=== PATIENT | female | born 1960 | race American Indian/Alaskan Native ===

== ENCOUNTER 2020-02-07 17:16 | Emergency (ER) | payer SELFPAY ==
[2020-02-07 18:46] LABS: Basophils # (Auto) 0.1 K/mm3 (0.0-0.1); Basophils % (Auto) 0.9 % (0.0-1.8); Eosinophils # (Auto) 0.2 K/mm3 (0.0-0.4); Eosinophils % (Auto) 2.2 % (0.0-4.3); Hematocrit 42.6 % (30.3-42.9); Hemoglobin 13.6 gm/dl (10.1-14.3); Lymphocytes # (Auto) 1.7 K/mm3 (1.2-5.4); Lymphocytes % (Auto) 17.3 % (13.4-35.0); Mean Corpuscular HGB Conc 32 % (30-34); Mean Corpuscular Volume 82 fl (79-97); Monocytes # (Auto) 0.7 K/mm3 (0.0-0.8); Monocytes % (Auto) 7.1 % (0.0-7.3); Platelet Count 485 K/mm3 (140-440); Red Blood Count 5.23 M/mm3 (3.65-5.03); Red Cell Distribution Width 15.8 % (13.2-15.2)
[2020-02-07] MEDS ORDERED: FAMOTIDINE 20 MG/2 ML INJ IV ONE (18:56)
[2020-02-07] MEDS ORDERED: SODIUM CHLORIDE 0.9% 1000 ML 1,000 ML IV ONE (18:56)
[2020-02-07] MEDS ORDERED: ONDANSETRON 4 MG/2 ML INJ IV ONE (18:56)
[2020-02-07] MEDS ORDERED: HYDROmorphone 1 MG/1 ML INJ IV ONE (18:56)
[2020-02-07 18:57] LABS: Bilirubin,Urine NEG (Negative); Blood,Urine SM (Negative); Color,Urine Straw (Yellow); Protein,Urine <15 mg/dL mg/dL (Negative); Urobilinogen,Urine < 2.0 mg/dL (<2.0)
[2020-02-07 19:00] LABS: Albumin 4.2 g/dL (3.9-5); Calcium 10.2 mg/dL (8.4-10.2)
--- NOTE | 2020-02-07 19:10 | Emergency Department Report ---
ED Abdominal Pain HPI - General Chief Complaint: Nausea/Vomiting/Diarrhea Stated Complaint: VOMITTING Time Seen by Provider: 02/07/20 18:35 Source: patient Mode of arrival: Ambulatory Limitations: No Limitations - History of Present Illness Initial Comments: 59-year-old female with a past medical history of diabetes on insulin, hypertension, previous cholecystectomy and presents to the hospital complains of nausea, vomiting with p.o. intolerance since this a.m. Patient has been unable to tolerate any of her medications because of vomiting and did not take her insulin because she was unable to eat. she denies hematemesis, fever, sick contacts, recent travel. She currently describes bilious vomiting without melena, hematochezia, or diarrhea. Patient has mid abdominal pain that radiates to to her entire abdomen. Patient denies history of gastroparesis Severity scale (0 -10): 9 - Related Data Previous Rx's Medication Instructions Recorded Last Taken Type Famotidine [Pepcid] 20 mg PO BID #20 tablet 02/07/20 Unknown Rx HYDROcodone/APAP 5-325 [[place] 1 each PO Q6HR PRN #14 tablet 02/07/20 Unknown Rx 5/325] Ondansetron [Zofran Odt] 4 mg PO Q8HR PRN #20 tab.rapdis 02/07/20 Unknown Rx Allergies Allergy/AdvReac Type Severity Reaction Status Date / Time metformin Allergy Nausea Verified 02/07/20 18:02 ED Review of Systems ROS: Stated complaint: VOMITTING Other details as noted in HPI Comment: All other systems reviewed and negative ED Past Medical Hx - Past Medical History Previous Medical History?: Yes Hx Hypertension: Yes Hx Heart Attack/AMI: Yes Hx Diabetes: Yes - Surgical History Hx Cholecystectomy: Yes Additional Surgical History: - Social History Smoking Status: Never Smoker - Medications Home Medications: Home Medications Medication Instructions Recorded Confirmed Last Taken Type Famotidine [Pepcid] 20 mg PO BID #20 tablet 02/07/20 Unknown Rx HYDROcodone/APAP 5-325 [[place] 1 each PO Q6HR PRN #14 tablet 02/07/20 Unknown Rx 5/325] Ondansetron [Zofran Odt] 4 mg PO Q8HR PRN #20 tab.rapdis 02/07/20 Unknown Rx ED Physical Exam - General Limitations: No Limitations - Other Other exam information: General: Mild distress secondary to pain Head: Atraumatic Eyes: normal appearance ENT: Dry mucous member Neck: Normal appearance, no midline tenderness Chest: Clear to auscultation bilaterally CV: Regular rate and rhythm Abdomen: Soft, normal bowel sounds, maximal tenderness to epigastric and right upper quadrant area without rebound or guarding Back: Normal inspection Extremity: Normal inspection, full range of motion Neuro: Alert O x 3, no facial asymmetry, speech clear, no gross motor sensory deficit Psych: Appropriate behavior Skin: No rash ED Course Vital Signs 02/07/20 02/07/20 02/07/20 18:07 18:36 19:26 Temperature 97.4 F L Pulse Rate 97 H 93 H Respiratory 26 H 22 22 Rate Blood Pressure 216/117 Blood Pressure 206/110 [Left] O2 Sat by Pulse 100 100 Oximetry 02/07/20 02/07/20 02/07/20 19:27 21:27 21:52 Temperature Pulse Rate 93 H 85 85 Respiratory 16 Rate Blood Pressure 206/110 117/70 Blood Pressure 126/78 [Left] O2 Sat by Pulse 98 Oximetry ED Medical Decision Making - Lab Data Result diagrams: 02/07/20 18:22 02/07/20 18:22 Lab Results 02/07/20 02/07/20 02/07/20 Range/Units 18:22 18:22 18:22 WBC 10.1 (4.5-11.0) K/mm3 RBC 5.23 H (3.65-5.03) M/mm3 Hgb 13.6 (10.1-14.3) gm/dl Hct 42.6 (30.3-42.9) % MCV 82 (79-97) fl MCH 26 L (28-32) pg MCHC 32 (30-34) % RDW 15.8 H (13.2-15.2) % Plt Count 485 H (140-440) K/mm3 Lymph % (Auto) 17.3 (13.4-35.0) % Carbon % (Auto) 7.1 (0.0-7.3) % Eos % (Auto) 2.2 (0.0-4.3) % Baso % (Auto) 0.9 (0.0-1.8) % Lymph # 1.7 (1.2-5.4) K/mm3 Carbon # 0.7 (0.0-0.8) K/mm3 Eos # 0.2 (0.0-0.4) K/mm3 Baso # 0.1 (0.0-0.1) K/mm3 Seg Neutrophils % 72.5 H (40.0-70.0) % Seg Neutrophils # 7.3 (1.8-7.7) K/mm3 Sodium 130 L (137-145) mmol/L Potassium 4.3 (3.6-5.0) mmol/L Chloride 92.0 L (98-107) mmol/L Carbon Dioxide 17 L (22-30) mmol/L Anion Gap 25 mmol/L BUN 18 H (7-17) mg/dL Creatinine 1.4 H (0.7-1.2) mg/dL Estimated GFR 47 ml/min BUN/Creatinine Ratio 13 % Glucose 285 H (65-100) mg/dL POC Glucose (70-105) Calcium 10.2 (8.4-10.2) mg/dL Total Bilirubin 0.60 (0.1-1.2) mg/dL AST 18 (5-40) units/L ALT 18 (7-56) units/L Alkaline Phosphatase 140 H (35-129) units/L Total Protein 7.8 (6.3-8.2) g/dL Albumin 4.2 (3.9-5) g/dL Albumin/Globulin Ratio 1.2 % Lipase 21 (13-60) units/L Urine Color (Yellow) Urine Turbidity (Clear) Urine pH (5.0-7.0) Ur Specific [place] (1.003-1.030) Urine Protein (Negative) mg/dL Urine Glucose (UA) (Negative) mg/dL Urine Ketones (Negative) mg/dL Urine Blood (Negative) Urine Nitrite (Negative) Urine Bilirubin (Negative) Urine Urobilinogen (<2.0) mg/dL Ur Leukocyte Esterase (Negative) Urine WBC (Auto) (0.0-6.0) /HPF Urine RBC (Auto) (0.0-6.0) /HPF 02/07/20 02/07/20 Range/Units 18:27 Unknown WBC (4.5-11.0) K/mm3 RBC (3.65-5.03) M/mm3 Hgb (10.1-14.3) gm/dl Hct (30.3-42.9) % MCV (79-97) fl MCH (28-32) pg MCHC (30-34) % RDW (13.2-15.2) % Plt Count (140-440) K/mm3 Lymph % (Auto) (13.4-35.0) % Carbon % (Auto) (0.0-7.3) % Eos % (Auto) (0.0-4.3) % Baso % (Auto) (0.0-1.8) % Lymph # (1.2-5.4) K/mm3 Carbon # (0.0-0.8) K/mm3 Eos # (0.0-0.4) K/mm3 Baso # (0.0-0.1) K/mm3 Seg Neutrophils % (40.0-70.0) % Seg Neutrophils # (1.8-7.7) K/mm3 Sodium (137-145) mmol/L Potassium (3.6-5.0) mmol/L Chloride (98-107) mmol/L Carbon Dioxide (22-30) mmol/L Anion Gap mmol/L BUN (7-17) mg/dL Creatinine (0.7-1.2) mg/dL Estimated GFR ml/min BUN/Creatinine Ratio % Glucose (65-100) mg/dL POC Glucose 264 H (70-105) Calcium (8.4-10.2) mg/dL Total Bilirubin (0.1-1.2) mg/dL AST (5-40) units/L ALT (7-56) units/L Alkaline Phosphatase (35-129) units/L Total Protein (6.3-8.2) g/dL Albumin (3.9-5) g/dL Albumin/Globulin Ratio % Lipase (13-60) units/L Urine Color Straw (Yellow) Urine Turbidity Clear (Clear) Urine pH 7.0 (5.0-7.0) Ur Specific [place] 1.008 (1.003-1.030) Urine Protein <15 mg/dl (Negative) mg/dL Urine Glucose (UA) >=500 (Negative) mg/dL Urine Ketones Neg (Negative) mg/dL Urine Blood Sm (Negative) Urine Nitrite Neg (Negative) Urine Bilirubin Neg (Negative) Urine Urobilinogen < 2.0 (<2.0) mg/dL Ur Leukocyte Esterase Neg (Negative) Urine WBC (Auto) 1.0 (0.0-6.0) /HPF Urine RBC (Auto) 2.0 (0.0-6.0) /HPF - EKG Data -: EKG Interpreted by Me EKG shows normal: sinus rhythm, ST-T waves (No STEMI) Rate: normal - Radiology Data Radiology results: report reviewed CT abdomen pelvis w con INDICATION: Nausea, vomiting, abdominal pain. TECHNIQUE: All CT scans at this location are performed using the following dose modulation technique: Automated exposure control. Helical slices were obtained through the abdomen and pelvis. 100 cc of Omnipaque 300 is administered. COMPARISON: None available. FINDINGS: Abdomen: Lung bases are clear. Liver, spleen, pancreas, right adrenal gland, and kidneys show no acute abnormality. There is a left adrenal nodule measures 1.7 cm. There is no adenopathy. There is been prior cholecystectomy. The aorta is normal in diameter. Pelvis: There is no adenopathy. There is no obstruction or inflammation. There is a calcified fibroid uterus. There is no obstruction or inflammation. On review of bone windows, no acute osseous abnormalities are seen. There is a stent in the left common and external iliac vein. Pelvis: IMPRESSION: 1. There is no obstruction, inflammation, or free air. There is a 1.7 cm left adrenal nodule. - Medical Decision Making Patient presents to the hospital with epigastric pain, nausea, vomiting and p.o. intolerance. Symptoms improved ED treatment with Zofran, Dilaudid, Pepcid, normal saline, and IV labetalol quality for blood pressure control. At time of disposition patient feeling better and tolerating p.o. intake. Glucose in the 234 at time of discharge without urine ketosis - Differential Diagnosis Gastroenteritis, pancreatitis, hepatitis, DKA Critical Care Time: No Critical care attestation.: If time is entered above; I have spent that time in minutes in the direct care of this critically ill patient, excluding procedure time. ED Disposition Clinical Impression: Nausea & vomiting, Abdominal pain, Hypertension, Diabetes Disposition: - TO HOME OR SELFCARE Is pt being admited?: No Does the pt Need Aspirin: No Condition: Stable Instructions: Diabetes Mellitus Type 2 in Adults (ED), Acute Nausea and Vomiting (ED), Abdominal Pain (ED), Hypertension (ED) Additional Instructions: Take the medication as prescribed. Follow-up with your doctor or doctor/clinic provided. Return if symptoms worsen as indicated by your discharge instructions. Prescriptions: HYDROcodone/APAP 5-325 [[place] 5/325] 1 each PO Q6HR PRN #14 tablet PRN Reason: Pain Famotidine [Pepcid] 20 mg PO BID #20 tablet Ondansetron [Zofran Odt] 4 mg PO Q8HR PRN #20 tab.rapdis PRN Reason: Nausea And Vomiting Referrals: PRIMARY CARE, [Primary Care Provider] - 3-5 Days Forms: Work/School Release Form(ED) Time of Disposition: 23:00
--- NOTE | 2020-02-07 20:16 | Cat Scan Report ---
CT abdomen pelvis w con INDICATION: Nausea, vomiting, abdominal pain. TECHNIQUE: All CT scans at this location are performed using the following dose modulation technique: Automated exposure control. Helical slices were obtained through the abdomen and pelvis. 100 cc of Omnipaque 30 0 is administered. COMPARISON: None available. FINDINGS: Abdomen: Lung bases are clear. Liver, spleen, pancreas, right adrenal gland, and kidneys show no acut e abnormality. There is a left adrenal nodule measures 1.7 cm. There is no adenopathy. There is been prior cholecystectomy. The aorta is normal in diameter. Pelvis: There is no adenopathy. There is no obstruction or inflammation. There is a calcified fibroid uterus. There is no obstruction or inflammation. On review of bone windows, no acute osseous abnormalities are seen. There is a stent in the left common and external iliac vein. Pelvis: IMPRESSION: 1. There is no obstruction, inflammation, or free air. There is a 1.7 cm left adrenal nodule. Signer Name: Brandan Coburn MD Signed: 02/07/2020 8:12 PM Workstation Name: [id number]
[2020-02-07] MEDS ORDERED: cloNIDine 0.1 MG TAB PO ONE (21:27)
[2020-02-07 21:53] VITALS: BP 117/70
== END 2020-02-08 01:23 | disposition home or self-care (01) ==
LOC: ED 17:16
DX: I10 Essential (primary) hypertension (principal); E11.9 Type 2 diabetes mellitus without complications; R11.2 Nausea with vomiting, unspecified; I25.2 Old myocardial infarction; Z79.899 Other long term (current) drug therapy; Z88.8 Allergy status to other drugs, medicaments and biological substances
CPT/HCPCS: 36415; 74177; 80053; 81001; 82962; 83690; 85025; 93005; 93010; 96361; 96374; 96375; 99284; J1170; J2405; J7030; Q9967

== ENCOUNTER 2020-07-24 21:52 | Observation (INO) | payer OTHER ==
[2020-07-24] MEDS ORDERED: ASPIRIN 325 MG TAB PO ONE (22:10)
--- NOTE | 2020-07-24 22:40 | XRay Report ---
CHEST 1 VIEW INDICATION: Chest Pain. COMPARISON: None. FINDINGS: Support devices: None. Heart: Within normal limits. Lungs/Pleura: No acute air space or interstitial disease. Additional findings: None. IMPRESSION: No acute abnormality. Signer Name: Luis A Webber MD Signed: 07/24/2020 10:36 PM Workstation Name: [id number]
[2020-07-24 23:24] LABS: Basophils % (Auto) 0.3 % (0.0-1.8); Eosinophils % (Auto) 0.4 % (0.0-4.3); Hematocrit 44.1 % (30.3-42.9); Lymphocytes # (Auto) 1.5 K/mm3 (1.2-5.4); Lymphocytes % (Auto) 12.9 % (13.4-35.0); Mean Corpuscular HGB Conc 32 % (30-34); Mean Corpuscular Volume 85 fl (79-97); Monocytes # (Auto) 0.6 K/mm3 (0.0-0.8); Monocytes % (Auto) 5.8 % (0.0-7.3); Platelet Count 409 K/mm3 (140-440); Red Blood Count 5.18 M/mm3 (3.65-5.03); Red Cell Distribution Width 16.2 % (13.2-15.2)
[2020-07-24 23:43] LABS: BUN/Creatinine Ratio 19; Blood Urea Nitrogen 23 mg/dL (7-17); Calcium 10.3 mg/dL (8.4-10.2); Hemolysis Index 29
[2020-07-25] MEDS ORDERED: MORPHINE 4 MG/1 ML INJ IV ONE (00:38)
[2020-07-25] MEDS ORDERED: PANTOPRAZOLE 40 MG INJ IV ONE (00:38)
[2020-07-25] MEDS ORDERED: SODIUM CHLORIDE 0.9% 1000 ML 1,000 ML IV ONE (00:38)
[2020-07-25] MEDS ORDERED: ONDANSETRON 4 MG/2 ML INJ IV ONE (00:38)
--- NOTE | 2020-07-25 00:43 | Emergency Department Report ---
ED Abdominal Pain HPI - General Chief Complaint: Chest Pain Stated Complaint: VOMITING PUI?: No Time Seen by Provider: 07/25/20 00:37 Source: patient Mode of arrival: Ambulatory Limitations: No Limitations - History of Present Illness Initial Comments: Chief complaint ": I have just been vomiting." HPI: This is a 60-year-old female with history of hypertension, severe obesity, myocardial infarction, diabetes mellitus who presents with vomiting and abdominal pain which began at 12:30 PM. She has diffuse severe 8 out of 10 a bdominal pain. The pain feels like "nothing is in my stomach." She denies diarrhea. She denies fever. She denies chest pain. She denies shortness of breath. She states that every 5 to 6 months she has vomiting episodes. On previous occasions, the vomiting causes dehydration according to her report. MD Complaint: abdominal pain -: Gradual, This afternoon Location: diffuse Radiation: none Migration to: no migration Severity: severe Severity scale (0 -10): 8 Quality: aching, fullness, dull Consistency: constant Improves With: nothing Worsens With: nothing Context: other (History of vomiting episodes on previous occasion requiring several ED visits) Associated Symptoms: nausea, vomiting. denies: diarrhea, fever, chills, constipation, dysuria, hematemesis, hematochezia, melena, hematuria, anorexia, syncope - Related Data Previous Rx's Medication Instructions Recorded Last Taken Type Famotidine [Pepcid] 20 mg PO BID #20 tablet 02/07/20 Unknown Rx HYDROcodone/APAP 5-325 [[place] 1 each PO Q6HR PRN #14 tablet 02/07/20 Unknown Rx 5/325] Ondansetron [Zofran Odt] 4 mg PO Q8HR PRN #20 tab.rapdis 02/07/20 Unknown Rx Allergies Allergy/AdvReac Type Severity Reaction Status Date / Time metformin Allergy Nausea Verified 02/07/20 18:02 ED Review of Systems ROS: Stated complaint: VOMITING Other details as noted in HPI Comment: All other systems reviewed and negative Constitutional: denies: chills, fever, malaise Respiratory: denies: shortness of breath Cardiovascular: denies: chest pain Gastrointestinal: abdominal pain, nausea, vomiting. denies: diarrhea ED Past Medical Hx - Past Medical History Previous Medical History?: Yes Hx Hypertension: Yes Hx Heart Attack/AMI: Yes Hx Diabetes: Yes Hx Arthritis: Yes Additional medical history: Obesity - Surgical History Past Surgical History?: Yes Hx Coronary Stent: Yes Hx Cholecystectomy: Yes Additional Surgical History: - Social History Smoking Status: Never Smoker Substance Use Type: None - Medications Home Medications: Home Medications Medication Instructions Recorded Confirmed Last Taken Type Famotidine [Pepcid] 20 mg PO BID #20 tablet 02/07/20 Unknown Rx HYDROcodone/APAP 5-325 [[place] 1 each PO Q6HR PRN #14 tablet 02/07/20 Unknown Rx 5/325] Ondansetron [Zofran Odt] 4 mg PO Q8HR PRN #20 tab.rapdis 02/07/20 Unknown Rx ED Physical Exam - General Limitations: No Limitations General appearance: alert, in no apparent distress, other (Patient is nontoxic- appearing but appears uncomfortable rubbing her stomach) - Head Head exam: Present: atraumatic, normocephalic - Eye Eye exam: Present: normal appearance - ENT ENT exam: Present: mucous membranes moist - Neck Neck exam: Present: normal inspection, full ROM - Respiratory Respiratory exam: Present: normal lung sounds bilaterally. Absent: respiratory distress, wheezes, rales, rhonchi - Cardiovascular Cardiovascular Exam: Present: regular rate, normal rhythm. Absent: systolic murmur, diastolic murmur, rubs, gallop - GI/Abdominal GI/Abdominal exam: Present: soft, normal bowel sounds. Absent: distended, tenderness, guarding, rebound - Neurological Exam Neurological exam: Present: alert, oriented X3 - Psychiatric Psychiatric exam: Present: normal affect, normal mood - Skin Skin exam: Present: warm, dry, intact, normal color. Absent: rash ED Course Vital Signs 07/24/20 21:55 Temperature 98.3 F Pulse Rate 86 Respiratory 18 Rate Blood Pressure 172/109 O2 Sat by Pulse 100 Oximetry ED Medical Decision Making - Lab Data Result diagrams: 07/24/20 22:26 07/24/20 22:26 Laboratory Results - last 24 hr 07/24/20 07/24/20 22:26 22:26 WBC 11.2 H RBC 5.18 H Hgb 14.0 Hct 44.1 H MCV 85 MCH 27 L MCHC 32 RDW 16.2 H Plt Count 409 Lymph % (Auto) 12.9 L [place] % (Auto) 5.8 Eos % (Auto) 0.4 Baso % (Auto) 0.3 Lymph # 1.5 [place] # 0.6 Eos # 0.0 Baso # 0.0 Seg Neutrophils % 80.6 H Seg Neutrophils # 9.0 H Sodium 134 L Potassium 4.4 Chloride 98.0 Carbon Dioxide 16 L Anion Gap 24 BUN 23 H Creatinine 1.2 Estimated GFR 56 BUN/Creatinine Ratio 19 Glucose 149 H Calcium 10.3 H Troponin T < 0.010 - Radiology Data Radiology results: report reviewed CT abdomen pelvis w con INDICATION: severe abdominal pain vomiting elevated wbc. TECHNIQUE: All CT scans at this location are performed using the following dose modulation technique: Automated exposure control. CONTRAST: Omnipaque 300, 100 cc IV injection. COMPARISON: CT abdomen and pelvis 02/07/2020 CT ABDOMEN: The parenchymal organs are unremarkable in appearance. Negative for abdominal mass, adenopathy or fluid collection. Thickening is seen at the descending colon. There is pneumatosis at the distal portion of the splenic flexure. A small amount of extraluminal air is also noted. Pneumatosis can be seen in this region on the previous exam in retrospect. CT PELVIS: Negative for pelvic mass, fluid or inflammation. The appendix is normal. Venous stents are noted at the left iliac and common femoral veins. Fibroid disease is seen at the uterus. IMPRESSION: Thickening at the distal splenic flexure and descending colon with associated pneumatosis and mild extraluminal air worrisome for ischemia. An atypical presentation of diverticulitis is also possible. No abscess. CRITICAL RESULT: Time of Discovery: 12:45 AM Time of Communication: 12:46 AM. Licensed Practitioner Receiving Report: Dr. Hemphill Read Back Performed: Yes. - Medical Decision Making Mrs. Peters presents with diffuse abdominal pain and vomiting. Due to severity of pain and elevated white blood cell count, CT abdomen pelvis ordered to rule out acute inflammatory or obstructive process. Patient did have evidence of volume contraction on BMP. Bicarbonate 16. IV fluids given for rehydration. Radiologist called me to discuss critical findings on CT scan. Patient has pneumatosis with extraluminal air concerning for ischemic bowel. I immediately spoke with general surgeon Dr. Fabian who agreed to consult. Considering the findings of pneumatosis was seen on earlier CT scan in January, ischemic bowel in my opinion does not correlate to the clinical picture. DDX: Acute diverticulitis, infectious colitis, IBS, diabetic gastroparesis Patient is admitted to the hospitalist service. Critical care attestation.: If time is entered above; I have spent that time in minutes in the direct care of this critically ill patient, excluding procedure time. ED Disposition Clinical Impression: Acute colitis Disposition: OP ADMIT IP TO THIS HOSP Is pt being admited?: Yes Does the pt Need Aspirin: No Condition: Stable
[2020-07-25] MEDS ORDERED: WATER FOR INJ Sterile (PF) 10 ML ONE (00:45)
[2020-07-25] MEDS ORDERED: HYDROmorphone 1 MG/1 ML INJ IV ONE (01:29)
--- NOTE | 2020-07-25 01:52 | Cat Scan Report ---
CT abdomen pelvis w con INDICATION: severe abdominal pain vomiting elevated wbc. TECHNIQUE: All CT scans at this location are performed using the following dose modulation technique: Automated exposure control. CONTRAST: Omnipaque 300, 100 cc IV injection. COMPARISON: CT abdomen and pelvis 02/07/2020 CT ABDOMEN: The parenchymal organs are unremarkable in appearance. Negative for abdominal mass, adeno diaz or fluid collection. Thickening is seen at the descending colon. There is pneumatosis at the di stal portion of the splenic flexure. A small amount of extraluminal air is also noted. Pneumatosis ca n be seen in this region on the previous exam in retrospect. CT PELVIS: Negative for pelvic mass, fluid or inflammation. The appendix is normal. Venous stents are noted at the left iliac and common femoral veins. Fibroid disease is seen at the uterus. IMPRESSION: Thickening at the distal splenic flexure and descending colon with associated pneumatosis and mild extraluminal air worrisome for ischemia. An atypical presentation of diverticulitis is also possible. No abscess. CRITICAL RESULT: Time of Discovery: 12:45 AM Time of Communication: 12:46 AM. Licensed Practitioner Receiving Report: Dr. Hemphill Read Back Performed: Yes. Signer Name: Luis A Webber MD Signed: 07/25/2020 1:48 AM Workstation Name: [id number]
[2020-07-25] MEDS ORDERED: PIPERACIL/TAZOBACTA 4.5/NS 100 4.5 GM/100 ML VIAL IV ONE ×2 (02:07→02:41)
[2020-07-25] MEDS ORDERED: SODIUM CHLORIDE 0.9% 1000 ML 1,000 ML IV SCH (04:45)
--- NOTE | 2020-07-25 04:45 | History and Physical Report ---
History of Present Illness Date of examination: 07/25/20 Date of admission: 07/25/20 02:18 Chief complaint: Abdominal pain History of present illness: 60 year old female presenting with abdominal pain that satrted 10 -12 hours ago and associated with nausea and vomiting , chills but no fever, shortness of breath, chest pain , dizziness diarrhea or constipation. Past History Past Medical History: arthritis, CAD, diabetes, hypertension, other (OBESITY) Past Surgical History: cholecystectomy, , Other (CARDIAC STENT, ) Social history: no significant social history Medications and Allergies Allergies Allergy/AdvReac Type Severity Reaction Status Date / Time metformin Allergy Nausea Verified 02/07/20 18:02 Home Medications Medication Instructions Recorded Confirmed Last Taken Type Amlodipine Besylate/Benazepril 10 - 40 mg PO QDAY 07/25/20 07/25/20 Unknown History [Amlodipine-Benazepril 10-40 mg] Insulin Aspart (Nf) [NovoLOG 07/25/20 Unknown History Flexpen] atenoloL [Tenormin] 25 mg PO QDAY 07/25/20 07/25/20 Unknown History Review of Systems Constitutional: chills, no weight gain, no fever, no sweats, no night sweats, no fatigue, no weakness, no malaise, no daytime sleepiness Eyes: bilateral: other (NO BILATERAL EYE SYMPTOM) Ears, nose, mouth and throat: no ear pain Breasts: deferred Cardiovascular: no chest pain, no orthopnea, no palpitations, no rapid/irregular heart beat, no lightheadedness, no shortness of breath Respiratory: no cough, no hemoptysis, no shortness of breath, no congestion, no wheezing Gastrointestinal: abdominal pain, nausea, vomiting, no diarrhea, no constipation, no change in bowel habits, no hematemesis, no coffee ground em esis, no melena, no hematochezia, no loss of appetite, no early satiety, no heartburn, no indigestion, no excessive gas, no jaundice Genitourinary Female: no Rectal: no pain Musculoskeletal: no neck stiffness, no neck pain, no shooting arm pain, no morning stiffness, no muscle weakness Integumentary: no rash, no pruritis, no redness, no sores Neurological: no paralysis, no weakness, no vertigo, no headaches Psychiatric: no anxiety, no memory loss, no insomnia, no hypersomnia, no suicidal ideation Exam - Constitutional Vitals: Temp Pulse Resp BP Pulse Ox 98.3 F 86 18 172/109 100 07/24/20 21:55 07/24/20 21:55 07/24/20 21:55 07/24/20 21:55 07/24/20 21:55 General appearance: Present: mild distress - EENT Eyes: Present: PERRL ENT: hearing intact, clear oral mucosa, dentition normal - Neck Neck: Present: supple, normal ROM - Respiratory Respiratory effort: normal - Cardiovascular Rhythm: regular Heart Sounds: Present: S1 & S2. Absent: gallop, systolic murmur, diastolic murmur - Extremities Extremities: no ischemia, No edema Peripheral Pulses: within normal limits - Abdominal General gastrointestinal: Present: soft, non-tender, non-distended. Absent: tender, distended, rigid, hepatomegaly, splenomegaly Female genitourinary: Present: deferred - Rectal Rectal Exam: deferred - Integumentary Integumentary: Present: clear, warm, dry. Absent: jaundice - Musculoskeletal Musculoskeletal: strength equal bilaterally - Psychiatric Psychiatric: appropriate mood/affect HEART Score - HEART Score Risk factors: 1-2 risk factors Troponin: Troponin T < 0.010 ng/mL (0.00-0.029) 07/24/20 22:26 - Critical Actions Critical Actions: 0-3 pts:0.9-1.7%risk of adverse cardiac event.Candidate for discharge Results - Labs CBC & Chem 7: 07/24/20 22:26 07/24/20 22:26 Labs: Laboratory Last Values WBC 11.2 K/mm3 (4.5-11.0) H 07/24/20 22: RBC 5.18 M/mm3 (3.65-5.03) H 07/24/20 22:26 Hgb 14.0 gm/dl (10.1-14.3) 07/24/20 22: Hct 44.1 % (30.3-42.9) H 07/24/20 22:26 MCV 85 fl (79-97) 07/24/20 22: MCH 27 pg (28-32) L 07/24/20 22: MCHC 32 % (30-34) 07/24/20 22: RDW 16.2 % (13.2-15.2) H 07/24/20 22: Plt Count 409 K/mm3 (140-440) 07/24/20 22: Lymph % (Auto) 12.9 % (13.4-35.0) L 07/24/20 22: [place] % (Auto) 5.8 % (0.0-7.3) 07/24/20 22: Eos % (Auto) 0.4 % (0.0-4.3) 07/24/20: Baso % (Auto) 0.3 % (0.0-1.8) 07/24/20: Lymph # 1.5 K/mm3 (1.2-5.4) 07/24/20: [place] # 0.6 K/mm3 (0.0-0.8) 07/24/20 22: Eos # 0.0 K/mm3 (0.0-0.4) 07/24/20: Baso # 0.0 K/mm3 (0.0-0.1) 07/24/20 22: Seg Neutrophils % 80.6 % (40.0-70.0) H 07/24/20 22: Seg Neutrophils # 9.0 K/mm3 (1.8-7.7) H 07/24/20 22:26 Sodium 134 mmol/L (137-145) L 07/24/20 22: Potassium 4.4 mmol/L (3.6-5.0) 07/24/20 22: Chloride 98.0 mmol/L (98-107) 07/24/20 22: Carbon Dioxide 16 mmol/L (22-30) L 07/24/20 22: Anion Gap 24 mmol/L 07/24/20 22:26 BUN 23 mg/dL (7-17) H 07/24/20 22: Creatinine 1.2 mg/dL (0.6-1.2) 07/24/20 22: Estimated GFR 56 ml/min 07/24/20 22: BUN/Creatinine Ratio 19 % 07/24/20 22: Glucose 149 mg/dL (65-100) H 07/24/20: Calcium 10.3 mg/dL (8.4-10.2) H 08/29/20 22:26 Troponin T < 0.010 ng/mL (0.00-0.029) 07/24/20 22:26 Villafuerte/IV: Voiding Method Toilet IV Catheter Type [left ac] Peripheral IV Assessment and Plan - Patient Problems (1) Acute diverticulitis Current Visit: Yes Status: Acute Plan to address problem: 1. I.V Metronidazole Antibiotic 2. I.V ZOSYN Antibiotic 3. NPO 4. I.V PANTOPRAZOL (2) Pneumatosis of intestines Current Visit: Yes Status: Acute Plan to address problem: SURGICAL CONSULT
[2020-07-25] MEDS: MORPHINE 2 MG/1 ML INJ IV PRN ×2 (05:43→09:07)
[2020-07-25] MEDS ORDERED: metroNIDAZOLE/NS 500 MG/100 ML 500 MG/100 ML BAG IV SCH (06:00)
[2020-07-25] MEDS ORDERED: PIPERACILLIN/TAZOBACTAM 3.375 3.375 GM/50 ML BAG IV SCH (06:00)
[2020-07-25] MEDS: PANTOPRAZOLE 40 MG INJ IV SCH (09:06)
[2020-07-25] MEDS: ONDANSETRON 4 MG/2 ML INJ IV PRN ×2 (09:07→23:31)
[2020-07-25] MEDS: PIPERACIL/TAZOBACTA 4.5/NS 100 4.5 GM/100 ML VIAL IV SCH ×2 (09:10→17:01)
[2020-07-25] MEDS ORDERED: HYDROcodone/ACETAMINOPHEN 5-325 MG TAB PO PRN (13:09)
--- NOTE | 2020-07-25 13:10 | Consultation ---
History of Present Illness Consult date: 07/25/20 Reason for consult: abdominal pain Requesting physician: SURI LEI Chief complaint: abdominal pain - History of present illness History of present illness: 60yo F with multiple medical problems including diabetes presents to the emergency department with abdominal pain. CT evaluation showed signs suggestive of pneumatosis at the splenic flexure. General surgery was consulted. Patient reports that this is the exact same situation that she had in January when she last presented to the emergency department. At that time, she had a sudden episode of vomiting which later developed into abdominal pain. Denies any fevers or chills. She presented to the emergency department and the pain resolved with IV pain medication. The subsequent day, she was back to normal and has not had a problem since. Yesterday, the same situation happened. She believes it may have something to do with her having a late lunch and then subsequently taking her insulin. All of a sudden, she began to vomit and then later abdominal pain developed. She had a normal bowel movement last night. Denies any fevers or chills. Her pain is generalized in its location in the abdomen. This was the same as last time. Her pain is a little bit better now. She is hungry and thirsty at this time. Denies any other problems. Past History Past Medical History: arthritis, CAD, diabetes, GERD, hypertension, other (OBESITY) Past Surgical History: cholecystectomy, , Other (CARDIAC STENT - Aug 2019) Social history: no significant social history. denies: smoking, alcohol abuse Family history: no significant family history Medications and Allergies Allergies Allergy/AdvReac Type Severity Reaction Status Date / Time metformin Allergy Nausea Verified 02/07/20 18:02 Home Medications Medication Instructions Recorded Confirmed Last Taken Type Amlodipine Besylate/Benazepril 10 - 40 mg PO QDAY 07/25/20 07/25/20 Unknown History [Amlodipine-Benazepril 10-40 mg] Insulin Aspart (Nf) [NovoLOG 07/25/20 Unknown History Flexpen] atenoloL [Tenormin] 25 mg PO QDAY 07/25/20 07/25/20 Unknown History Active Meds: Active Medications Sodium Chloride (Nacl 0.9% 1000 Ml) 1,000 mls @ 100 mls/hr IV DIRECT DIANN Last Admin: 07/25/20 05:42 Dose: 100 mls/hr Documented by: Piperacillin Sod/Tazobactam Sod (Zosyn/Ns 4.5gm/100ml) 4.5 gm in 100 mls @ 200 mls/hr IV Q8H [facility] Last Admin: 07/25/20 09:10 Dose: 200 mls/hr Documented by: Ondansetron HCl (Zofran) 4 mg IV Q8H PRN PRN Reason: Nausea And Vomiting Last Admin: 07/25/20 09:07 Dose: 4 mg Documented by: Pantoprazole Sodium (Protonix) 40 mg IV QDAY [facility] Last Admin: 07/25/20 09:06 Dose: 40 mg Documented by: Review of Systems - Constitutional no fever, no chills, no chronic pain - Cardiovascular no chest pain, no shortness of breath - Respiratory no cough - Gastrointestinal abdominal pain, nausea, vomiting, heartburn, no change in bowel habits, no hematemesis, no coffee ground emesis, no BRBPR, no melena, no hematochezia, no loss of appetite, no dyspepsia/bloating - Genitourinary Genitourinary: no dysuria - Muskuloskeletal no low back pain - Integumentary no rash, no pruritis, no wounds - Endocrine excessive thirst Exam Vital Signs Temp Pulse Resp BP Pulse Ox 98.3 F 86 18 172/109 100 07/24/20 21:55 07/24/20 21:55 07/24/20 21:55 07/24/20 21:55 07/24/20 21:55 - General physical appearance Positive: well developed, well nourished, no distress, no pain, obese, other (Appears comfortable when I walked in the room. She was easily awakened.) - Eyes Positive: normal occular movement - Respiratory Positive: normal expansion, normal respiratory effort, clear to auscultation - Cardiovascular Rhythm: regular - Abdomen Abdomen: Present: soft, tender (Mild, throughout the abdomen. Maximum point of tenderness is the epigastric area. Pain increased with contraction of the abdominal musculature.), bowel sounds hypoactive. Absent: guarding, rigid, wound - Integumentary no rash, no growths, no abnormal pigmentation - Neurologic Neurologic: alert and oriented to time, place and person - Psychiatric Psychiatric: appropriate mood/affect, intact judgment & insight, cooperative Results - Labs 07/24/20 22:26 07/24/20 22:26 Abnormal lab results 07/24/20 07/24/20 07/25/20 Range/Units 22:26 22:26 05:02 WBC 11.2 H (4.5-11.0) K/mm3 RBC 5.18 H (3.65-5.03) M/mm3 Hct 44.1 H (30.3-42.9) % MCH 27 L (28-32) pg RDW 16.2 H (13.2-15.2) % Lymph % (Auto) 12.9 L (13.4-35.0) % Seg Neutrophils % 80.6 H (40.0-70.0) % Seg Neutrophils # 9.0 H (1.8-7.7) K/mm3 Sodium 134 L (137-145) mmol/L Carbon Dioxide 16 L (22-30) mmol/L BUN 23 H (7-17) mg/dL Glucose 149 H (65-100) mg/dL POC Glucose 169 H (70-105) Calcium 10.3 H (8.4-10.2) mg/dL 07/25/20 07/25/20 Range/Units 07:41 11:23 WBC (4.5-11.0) K/mm3 RBC (3.65-5.03) M/mm3 Hct (30.3-42.9) % MCH (28-32) pg RDW (13.2-15.2) % Lymph % (Auto) (13.4-35.0) % Seg Neutrophils % (40.0-70.0) % Seg Neutrophils # (1.8-7.7) K/mm3 Sodium (137-145) mmol/L Carbon Dioxide (22-30) mmol/L BUN (7-17) mg/dL Glucose (65-100) mg/dL POC Glucose 135 H 120 H (70-105) Calcium (8.4-10.2) mg/dL Diabetes panel 07/24/20 Range/Units 22:26 Sodium 134 L (137-145) mmol/L Potassium 4.4 (3.6-5.0) mmol/L Chloride 98.0 (98-107) mmol/L Carbon Dioxide 16 L (22-30) mmol/L BUN 23 H (7-17) mg/dL Creatinine 1.2 (0.6-1.2) mg/dL Glucose 149 H (65-100) mg/dL Calcium 10.3 H (8.4-10.2) mg/dL Calcium panel 07/24/20 Range/Units 22:26 Calcium 10.3 H (8.4-10.2) mg/dL Pituitary panel 07/24/20 Range/Units 22:26 Sodium 134 L (137-145) mmol/L Potassium 4.4 (3.6-5.0) mmol/L Chloride 98.0 (98-107) mmol/L Carbon Dioxide 16 L (22-30) mmol/L BUN 23 H (7-17) mg/dL Creatinine 1.2 (0.6-1.2) mg/dL Glucose 149 H (65-100) mg/dL Calcium 10.3 H (8.4-10.2) mg/dL Adrenal panel 07/24/20 Range/Units 22:26 Sodium 134 L (137-145) mmol/L Potassium 4.4 (3.6-5.0) mmol/L Chloride 98.0 (98-107) mmol/L Carbon Dioxide 16 L (22-30) mmol/L BUN 23 H (7-17) mg/dL Creatinine 1.2 (0.6-1.2) mg/dL Glucose 149 H (65-100) mg/dL Calcium 10.3 H (8.4-10.2) mg/dL - Imaging CT scan - abdomen: report reviewed, image reviewed CT scan - pelvis: report reviewed, image reviewed Assessment and Plan - Patient Problems (1) Abdominal pain Current Visit: Yes Status: Acute Qualifiers: Abdominal location: generalized Qualified Code(s): R10.84 - Generalized abdominal pain Plan to address problem: Pt stable. Her exam, history, CT scan are not in agreement. Her exam and history would suggest that her abdominal pain is secondary to abdominal contractions during the vomiting. She has generalized pain which is worse in th e epigastric area as expected post vomiting. Her overall clinical picture is not consistent with colitis or ischemic bowel. The CT scan is the exact same appearance as it was in January of this year. This would not be consistent with pneumatosis, ischemia, acute colitis. It is not clear what is causing this appearance, but it does deserve further evaluation once her symptoms have resolved. At this time, there does not appear to be any surgical intervention that is required. We will initiate a clear liquid diet and give her additional IV fluids as she is significantly dehydrated. I have encouraged her to ambulate. If she does well today and feels better tomorrow, then we will decide on timing of further evaluation. As she was supposed to start a new job tomorrow, she may want to have non-urgent evaluation done as an outpatient. We will discuss this further tomorrow. We will follow along. Please call with any questions. Time=45min
[2020-07-25] MEDS: HYDROmorphone 1 MG/1 ML INJ IV PRN ×2 (13:56→23:31)
[2020-07-25] MEDS: KETOROLAC 30 MG/1 ML INJ IV SCH ×2 (13:57→17:02)
--- NOTE | 2020-07-25 14:51 | Progress Note ---
Assessment and Plan Assessment and plan: --Possible colonic pneumatosis; on CT Conservative management, IV fluids and pain medications Per surgery evaluation noted and appreciated --Possible colonic diverticulitis; on CT Continue clear liquids, supportive care Surgery following --Abdominal pain; IV fluids, pain medications, supportive care --Coronary artery disease status post PCI: Resume all her home cardiac medications --Metabolic acidosis: Secondary to acidosis, rigorous IV hydration --Morbid obesity; BMI 47.7 Patient needs dietary modification exercise as tolerated and weight reduction When medically stable --Mild hyponatremia; IV normal saline, closely monitor electrolytes --DVT prophylaxis; Lovenox Surgery evaluation and recommendations noted and appreciated We will closely monitor the patient and adjust the management as needed Plan of care reviewed with the patient and her nurse History Interval history: I have seen and examined the patient at the bedside Patient's chart and medications reviewed Patient complains of mild abdominal discomfort Alert awake oriented Morbidly obese Vital signs reviewed Hospitalist Physical - Constitutional Vitals: Temp Pulse Resp BP Pulse Ox 98.5 F 72 18 124/56 99 07/25/20 04:34 07/25/20 04:34 07/25/20 04:34 07/25/20 04:34 07/25/20 04:34 General appearance: Present: mild distress, well-nourished, obese (Morbidly obes e) - EENT Eyes: Present: PERRL, EOM intact - Neck Neck: Present: supple, normal ROM - Respiratory Respiratory effort: normal Respiratory: bilateral: diminished, negative: rales, rhonchi, wheezing - Cardiovascular Rhythm: regular Heart Sounds: Present: S1 & S2 - Extremities Extremities: no ischemia, No edema - Abdominal General gastrointestinal: soft, tender (Vague tenderness all over more at the epigastrium, no guarding no rigidity), non-distended, hypoactive bowel sounds - Integumentary Integumentary: Present: clear, warm - Psychiatric Psychiatric: appropriate mood/affect, cooperative - Neurologic Neurologic: moves all extremities HEART Score - HEART Score Risk factors: 1-2 risk factors Troponin: Troponin T < 0.010 ng/mL (0.00-0.029) 07/24/20 22:26 - Critical Actions Critical Actions: 0-3 pts:0.9-1.7%risk of adverse cardiac event.Candidate for discharge Results - Labs CBC & Chem 7: 07/24/20 22:07/24/20 22: Labs: Laboratory Last Values WBC 11.2 K/mm3 (4.5-11.0) H 07/24/20 22: RBC 5.18 M/mm3 (3.65-5.03) H 07/24/20 22: Hgb 14.0 gm/dl (10.1-14.3) 07/24/20: Hct 44.1 % (30.3-42.9) H 07/24/20: MCV 85 fl (79-97) 07/24/20 22: MCH 27 pg (28-32) L 07/24/20: MCHC 32 % (30-34) 07/24/20: RDW 16.2 % (13.2-15.2) H 07/24/20: Plt Count 409 K/mm3 (140-440) 07/24/20: Lymph % (Auto) 12.9 % (13.4-35.0) L 07/24/20: [place] % (Auto) 5.8 % (0.0-7.3) 07/24/20: Eos % (Auto) 0.4 % (0.0-4.3) 07/24/20: Baso % (Auto) 0.3 % (0.0-1.8) 07/24/20: Lymph # 1.5 K/mm3 (1.2-5.4) 07/24/20: [place] # 0.6 K/mm3 (0.0-0.8) 07/24/20: Eos # 0.0 K/mm3 (0.0-0.4) 07/24/20: Baso # 0.0 K/mm3 (0.0-0.1) 07/24/20: Seg Neutrophils % 80.6 % (40.0-70.0) H 07/24/20: Seg Neutrophils # 9.0 K/mm3 (1.8-7.7) H 07/24/20 22: Sodium 134 mmol/L (137-145) L 07/24/20 22: Potassium 4.4 mmol/L (3.6-5.0) 07/24/20 22:26 Chloride 98.0 mmol/L (98-107) 07/24/20 22:26 Carbon Dioxide 16 mmol/L (22-30) L 07/24/20 22:26 Anion Gap 24 mmol/L 07/24/20 22:26 BUN 23 mg/dL (7-17) H 07/24/20 22:26 Creatinine 1.2 mg/dL (0.6-1.2) 07/24/20 22:26 Estimated GFR 56 ml/min 07/24/20 22:26 BUN/Creatinine Ratio 19 % 07/24/20 22:26 Glucose 149 mg/dL (65-100) H 07/24/20 22:26 POC Glucose 120 (70-105) H 07/25/20 11:23 Calcium 10.3 mg/dL (8.4-10.2) H 07/24/20 22:26 Troponin T < 0.010 ng/mL (0.00-0.029) 07/24/20 22:26 Lipase 33 units/L (13-60) 07/25/20 00:38 Villafuerte/IV: Voiding Method Toilet IV Catheter Type [left ac] Peripheral IV Active Medications - Current Medications Current Medications: Generic Name Dose Route Start Last Admin Trade Name Freq PRN Reason Stop Dose Admin Acetaminophen/Hydrocodone Bitart 1 each 07/25/20 13:09 Dodge 5/325 PO Q6H PRN Pain, Moderate (4-6) Hydromorphone HCl 0.5 mg 07/25/20 13:08 07/25/20 13:56 Dilaudid IV 0.5 mg Q3H PRN Administration Pain , Severe (7-10) Sodium Chloride 1,000 mls @ 100 mls/hr 07/25/20 04:45 07/25/20 05:42 Nacl 0.9% 1000 Ml IV 100 mls/hr DIRECT DIANN Administration Piperacillin Sod/Tazobactam Sod 4.5 gm in 100 mls @ 200 mls/hr 07/25/20 10:00 07/25/20 09:10 Zosyn/Ns 4.5gm/100ml IV 200 mls/hr Q8H DIANN Administration Sodium Chloride 1,000 mls @ 0 mls/hr 07/25/20 13:15 Nacl 0.9% 1000 Ml IV 07/26/20 13:16 ONCE DIANN As Directed Ketorolac Tromethamine 15 mg 07/25/20 14:00 07/25/20 13:57 Toradol IV 07/30/20 13:59 15 mg Q6HR DIANN Administration Ondansetron HCl 4 mg 07/25/20 04:27 07/25/20 09:07 Zofran IV 4 mg Q8H PRN Administration Nausea And Vomiting Pantoprazole Sodium 40 mg 07/25/20 10:00 07/25/20 09:06 Protonix IV 40 mg QDAY DIANN Administration
[2020-07-25] MEDS: SODIUM CHLORIDE 0.9% 1000 ML 1,000 ML IV SCH ×2 (15:40→16:53)
[2020-07-25] MEDS ORDERED: NON-FORMULARY EACH (Cymbalta 30 MG) PO SCH (22:00)
[2020-07-25] MEDS: DULoxetine 30 MG CAP PO SCH (23:31)
[2020-07-26] MEDS: KETOROLAC 30 MG/1 ML INJ IV SCH ×3 (02:28→11:28)
[2020-07-26] MEDS: PIPERACIL/TAZOBACTA 4.5/NS 100 4.5 GM/100 ML VIAL IV SCH (02:29)
[2020-07-26 06:57] LABS: Basophils % (Auto) 0.4 % (0.0-1.8); Eosinophils # (Auto) 0.4 K/mm3 (0.0-0.4); Eosinophils % (Auto) 7.5 % (0.0-4.3); Hematocrit 34.2 % (30.3-42.9); Hemoglobin 11.1 gm/dl (10.1-14.3); Lymphocytes # (Auto) 1.7 K/mm3 (1.2-5.4); Lymphocytes % (Auto) 35.4 % (13.4-35.0); Mean Corpuscular HGB Conc 32 % (30-34); Mean Corpuscular Volume 86 fl (79-97); Monocytes # (Auto) 0.4 K/mm3 (0.0-0.8); Platelet Count 294 K/mm3 (140-440); Red Blood Count 3.98 M/mm3 (3.65-5.03); Red Cell Distribution Width 16.3 % (13.2-15.2)
[2020-07-26 07:35] LABS: Calcium 8.8 mg/dL (8.4-10.2)
--- NOTE | 2020-07-26 09:16 | Progress Note ---
Assessment and Plan - Patient Problems (1) Abdominal pain Current Visit: Yes Status: Acute Qualifiers: Abdominal location: generalized Qualified Code(s): R10.84 - Generalized abdominal pain Plan to address problem: Pt stable. Her exam, history, CT scan are not in agreement. Her exam and history would suggest that her abdominal pain is secondary to abdominal contractions during the vomiting. She has generalized pain which is worse in the epigastric area as expected post vomiting. Her overall clinical picture is not consistent with colitis or ischemic bowel. The CT scan is the exact same appearance as it was in January of this year. This would not be consistent with pneumatosis, ischemia, acute colitis. It is not clear what is causing this appearance, but it does deserve further evaluation once her symptoms have resolved. Pt is much improved today. There are no concerning issues. No surgery needed at this time. Ok for discharge to home from my perspective. Recommend: 1) d/c home today 2) diabetic diet 3) output barium enema and GI consult for elective c-scope. Please call with any questions. Time=15min Subjective Date of service: 07/26/20 Patient Reports: Positive: feels better, pain is less (very minimal), tolerating liquids well, flatus. Negative: nausea, vomiting Objective Vital Signs - 12hr 07/25/20 07/26/20 22:37 05:07 Temperature 98.1 F Pulse Rate 63 67 Respiratory 18 18 Rate Blood Pressure 110/61 105/65 O2 Sat by Pulse 100 98 Oximetry - General physical appearance no distress, no pain, obese, other (looks well) - Respiratory normal expansion, normal respiratory effort - Abdomen soft, not tender, not distended, not guarding, not rigid - Integumentary no rash, no growths, no abnormal pigmentation - Psychiatric oriented to time, oriented to person, oriented to place, speech is normal, memory intact - Labs 07/26/20 06:22 07/26/20 06:22 Diabetes panel 07/26/20 Range/Units 06:22 Sodium 139 (137-145) mmol/L Potassium 4.6 (3.6-5.0) mmol/L Chloride 107.0 (98-107) mmol/L Carbon Dioxide 21 L (22-30) mmol/L BUN 22 H (7-17) mg/dL Creatinine 1.4 H (0.6-1.2) mg/dL Glucose 133 H (65-100) mg/dL Calcium 8.8 (8.4-10.2) mg/dL Calcium panel 07/26/20 Range/Units 06:22 Calcium 8.8 (8.4-10.2) mg/dL Pituitary panel 07/26/20 Range/Units 06:22 Sodium 139 (137-145) mmol/L Potassium 4.6 (3.6-5.0) mmol/L Chloride 107.0 (98-107) mmol/L Carbon Dioxide 21 L (22-30) mmol/L BUN 22 H (7-17) mg/dL Creatinine 1.4 H (0.6-1.2) mg/dL Glucose 133 H (65-100) mg/dL Calcium 8.8 (8.4-10.2) mg/dL Adrenal panel 07/26/20 Range/Units 06:22 Sodium 139 (137-145) mmol/L Potassium 4.6 (3.6-5.0) mmol/L Chloride 107.0 (98-107) mmol/L Carbon Dioxide 21 L (22-30) mmol/L BUN 22 H (7-17) mg/dL Creatinine 1.4 H (0.6-1.2) mg/dL Glucose 133 H (65-100) mg/dL Calcium 8.8 (8.4-10.2) mg/dL
[2020-07-26] MEDS ORDERED: NON-FORMULARY EACH (Hydralazine 50 MG) PO SCH (10:00)
[2020-07-26] MEDS ORDERED: atenoloL 25 MG TAB PO SCH (10:00)
[2020-07-26] MEDS ORDERED: IMDUR 30 MG PO SCH (10:00)
[2020-07-26] MEDS ORDERED: OXYBUTYNIN 5 MG TAB PO SCH (10:00)
[2020-07-26] MEDS ORDERED: buPROPion XL 150 MG TAB PO SCH (10:00)
[2020-07-26] MEDS ORDERED: WELLBUTRIN 300 MG PO SCH (10:00)
[2020-07-26] MEDS ORDERED: EFFIENT 10 MG PO SCH (10:00)
[2020-07-26] MEDS ORDERED: hydroCHLOROthiazide 25 MG TAB PO SCH (10:00)
[2020-07-26] MEDS ORDERED: hydrALAZINE 25 MG TAB PO SCH (10:00)
[2020-07-26] MEDS ORDERED: OXYBUTYNIN 10 MG PO SCH (10:00)
[2020-07-26] MEDS ORDERED: PRASUGREL 10 MG TAB PO SCH (10:00)
[2020-07-26] MEDS ORDERED: NON-FORMULARY EACH (Hydrochlorothiazide 25 MG) PO SCH (10:00)
--- NOTE | 2020-07-26 10:38 | Discharge Summary ---
Providers - Providers Date of Admission: 07/25/20 02:18 Date of discharge: 07/26/20 Attending physician: DEEJAY HAQ 07/25/20 02:40 Consult to Physician [CONS] Stat Comment: Dr. Hemphill spoke with Dr. Fabian @ 0210 Consulting Provider: MARCO FABIAN Physician Instructions: Reason For Exam: colitis [facility] Condition: Stable Disposition: DC- TO HOME OR SELFCARE Core Measure Documentation - Palliative Care Palliative Care/ Comfort Measures: Not Applicable - Core Measures Any of the following diagnoses?: none Exam - Constitutional Vitals: Temp Pulse Resp BP Pulse Ox 98.1 F 67 18 105/65 98 07/26/20 05:07 07/26/20 05:07 07/26/20 05:07 07/26/20 05:07 07/26/20 05:07 Plan Diet: diabetic Additional Instructions: If you have worsening symptoms, contact MD or go to emergency room. Outpatient barium enema, outpatient colonoscopy. Advised to see GI Dr. Endy Landaverde in 1 week. You are on numerous medications at home, advised to check with your primary care physician to review the medications, before resuming them Follow up with: ENDY LANDAVERDE MD [Staff Physician] - 7 Days TANGENT BRIDGETTE ODOM MD [Primary Care Provider] - 7 Days MARCO FABIAN MD [Staff Physician] - 14 Days
[2020-07-26 11:19] VITALS: BP 119/58
[2020-07-26] MEDS: PANTOPRAZOLE 40 MG INJ IV SCH (11:28)
[2020-07-26] MEDS: DULoxetine 30 MG CAP PO SCH (11:30)
== END 2020-07-26 16:30 | disposition home or self-care (01) ==
LOC: ED 21:52 → 3B-SURG 07-25 02:18
PROVIDERS: ADMIT Internal Medicine; ATTEND Internal Medicine
DX: K52.9 Noninfective gastroenteritis and colitis, unspecified (principal); R11.2 Nausea with vomiting, unspecified; K57.92 Diverticulitis of intestine, part unspecified, without perforation or abscess without bleeding; K63.89 Other specified diseases of intestine; E87.2 Acidosis; E87.1 Hypo-osmolality and hyponatremia; M19.90 Unspecified osteoarthritis, unspecified site; I25.10 Atherosclerotic heart disease of native coronary artery without angina pectoris; E11.9 Type 2 diabetes mellitus without complications; I10 Essential (primary) hypertension; E66.01 Morbid (severe) obesity due to excess calories; I25.2 Old myocardial infarction; Z95.5 Presence of coronary angioplasty implant and graft; Z90.49 Acquired absence of other specified parts of digestive tract; Z79.4 Long term (current) use of insulin; Z79.899 Other long term (current) drug therapy; Z88.8 Allergy status to other drugs, medicaments and biological substances; Z68.42 Body mass index [BMI] 45.0-49.9, adult
CPT/HCPCS: 36415; 71045; 74177; 80048; 82962; 83690; 84484; 85025; 93005; 96361; 96365; 96366; 96367; 96375; 96376; 99285; A9270; C9113; G0378; J1170; J1885; J2270; J2405; J2543; J7030; Q9967

== ENCOUNTER 2020-09-03 13:28 | Observation (INO) | payer OTHER ==
[2020-09-03] MEDS ORDERED: ASPIRIN 325 MG TAB PO ONE (13:57)
[2020-09-03 15:13] LABS: Basophils # (Auto) 0.1 K/mm3 (0.0-0.1); Basophils % (Auto) 0.9 % (0.0-1.8); Eosinophils # (Auto) 0.3 K/mm3 (0.0-0.4); Eosinophils % (Auto) 4.1 % (0.0-4.3); Hematocrit 38.1 % (30.3-42.9); Hemoglobin 12.4 gm/dl (10.1-14.3); Lymphocytes # (Auto) 1.6 K/mm3 (1.2-5.4); Lymphocytes % (Auto) 25.7 % (13.4-35.0); Mean Corpuscular HGB Conc 33 % (30-34); Mean Corpuscular Volume 87 fl (79-97); Monocytes # (Auto) 0.4 K/mm3 (0.0-0.8); Monocytes % (Auto) 6.6 % (0.0-7.3); Platelet Count 325 K/mm3 (140-440); Red Blood Count 4.39 M/mm3 (3.65-5.03); Red Cell Distribution Width 15.8 % (13.2-15.2)
--- NOTE | 2020-09-03 15:18 | XRay Report ---
CHEST 2 VIEWS INDICATION: Chest Pain. COMPARISON: 07/24/2020 FINDINGS: Support devices: None. Heart: Within normal limits. Lungs/pleura: No acute air space or interstitial disease. No pneumothorax. Additional findings: None. IMPRESSION: No acute findings. Signer Name: Palomo Dickerson Jr, MD Signed: 09/03/2020 3:14 PM Workstation Name: [id number]
[2020-09-03 15:20] LABS: BUN/Creatinine Ratio 19; Blood Urea Nitrogen 23 mg/dL (7-17); Calcium 9.9 mg/dL (8.4-10.2); Hemolysis Index 14
[2020-09-03] MEDS ORDERED: ONDANSETRON 4 MG/2 ML INJ IV ONE (21:02)
[2020-09-03] MEDS ORDERED: SODIUM CHLORIDE 0.9% 1000 ML 1,000 ML IV ONE (21:02)
[2020-09-03] MEDS ORDERED: MORPHINE 4 MG/1 ML INJ IV ONE (21:03)
[2020-09-03] MEDS ORDERED: FAMOTIDINE 20 MG/2 ML INJ IV ONE (21:03)
--- NOTE | 2020-09-03 22:01 | Cat Scan Report ---
CTA CHEST WITH IV CONTRAST INDICATION: chest pain. Dyspnea TECHNIQUE: Axial CT images were obtained through the chest after injection of 100 mL IV contrast. 3 plane MIP re constructions were produced. All CT scans at this location are performed using CT dose reduction for ALARA by means of automated exposure control. COMPARISON: None available. FINDINGS: PULMONARY ARTERIES: No definite pulmonary emboli. Mild respiratory motion artifact limits evaluation of the distal segmental pulmonary arteries. AORTA AND ARTERIES: No acute abnormality. MEDIASTINUM: No mass, lymphadenopathy or other significant abnormality. The heart is normal in size w ithout a pericardial effusion. The trachea and main bronchi are patent and normal in caliber. LUNGS: No suspicious consolidation, nodule or mass. No pneumothorax or pleural effusion. ADDITIONAL FINDINGS: None. UPPER ABDOMEN: Question mild pneumatosis involving the splenic flexure of the colon BONES: No significant osseous abnormality. IMPRESSION: 1. No CT evidence for pulmonary embolism. 2. No acute intrathoracic findings. 3. Partially visualized pneumatosis near the splenic flexure of the colon. Please see separately dict ated CT abdomen and pelvis report. Signer Name: Chad Winn MD Signed: 09/03/2020 9:56 PM Workstation Name: [id number]
--- NOTE | 2020-09-03 22:03 | Emergency Department Report ---
ED Chest Pain HPI - General Chief Complaint: Chest Pain Stated Complaint: CHEST PAIN/VOMITING Time Seen by Provider: 09/03/20 20:43 Source: patient Mode of arrival: Ambulatory Limitations: No Limitations - History of Present Illness Initial Comments: 60-year-old female with a past medical history of morbid obesity, insulin- dependent diabetes, CAD with stent placed August 2018, previous DVT, "stent in her leg", hypertension, previous cholecystectomy and presents to the hospital with complaints of chest pain, nausea vomiting, and abdominal pain. Initially patient developed left-sided stabbing chest pain with shortness of breath about 9:[address] this morning [address] the way to her radiographer cardiac catheterization office. Pain last for 2 minutes at a time and stop for 15 minutes did not recur. No aggravating or alleviating factors reported. She denies diaphoresis or lightheadedness. She did develop nausea with persistent vomiting throughout the day followed by generalized aching abdominal pain. Abdomen pain worse with palpation. She denies melena, hematochezia hematemesis, diarrhea, coffee-ground emesis, or fever. Patient also states she is urinating a lot but denies dysuria. She just had a glucose monitor placed on her left posterior shoulder that connects to her phone. Patient states in the past she has followed up with [facility] including cardiology but lost her insurance and does not currently have a edger liner. She takes aspirin daily Severity scale (0 -10): 6 - Related Data Home Medications Medication Instructions Recorded Confirmed Last Taken Actos 30 mg PO DAILY 07/25/20 07/25/20 Unknown Amlodipine Besylate/Benazepril 10 - 40 mg PO QDAY 07/25/20 07/25/20 Unknown [Amlodipine-Benazepril 10-40 mg] AtorvaSTATin [Lipitor] 40 mg PO QHS 07/25/20 07/25/20 Unknown Basaglar Kwikpen U-100 30 units SQ HS 07/25/20 07/25/20 Unknown Cymbalta 30 mg PO BID 07/25/20 07/25/20 Unknown Effient 10 mg PO DAILY 07/25/20 07/25/20 Unknown Hydrochlorothiazide 25 mg PO DAILY 07/25/20 07/25/20 Unknown Imdur ER 30 mg PO DAILY 07/25/20 07/25/20 Unknown Insulin Aspart (Nf) [NovoLOG 70 units SQ DAILY 07/25/20 07/25/20 Unknown Flexpen] Oxybutynin 10 mg PO DAILY 07/25/20 07/25/20 Unknown Protonix TAB 40 mg PO DAILY 07/25/20 07/25/20 Unknown Wellbutrin XL 300 mg PO DAILY 07/25/20 07/25/20 Unknown atenoloL [Tenormin] 25 mg PO QDAY 07/25/20 07/25/20 Unknown hydrALAZINE 50 mg PO DAILY 07/25/20 07/25/20 Unknown Allergies Allergy/AdvReac Type Severity Reaction Status Date / Time metformin Allergy Nausea Verified 02/07/20 18:02 Heart Score - HEART Score History: Slightly suspicious EKG: Non-specific Age: 45-65 Risk factors: > 3 risk factors or hx of atherosclerotic disease Troponin: < normal limit HEART Score: 4 ED Review of Systems ROS: Stated complaint: CHEST PAIN/VOMITING Other details as noted in HPI Comment: All other systems reviewed and negative ED Past Medical Hx - Past Medical History Hx Hypertension: Yes Hx Heart Attack/AMI: Yes (stent) Hx Congestive Heart Failure: No Hx Diabetes: Yes Hx Arthritis: Yes Hx Asthma: No Hx COPD: No Hx HIV: No Additional medical history: Obesity. blood clot in leg - Surgical History Hx Coronary Stent: Yes Hx Cholecystectomy: Yes Additional Surgical History: . "stent in leg" - Social History Smoking Status: Never Smoker - Medications Home Medications: Home Medications Medication Instructions Recorded Confirmed Last Taken Type Actos 30 mg PO DAILY 07/25/20 07/25/20 Unknown History Amlodipine Besylate/Benazepril 10 - 40 mg PO QDAY 07/25/20 07/25/20 Unknown History [Amlodipine-Benazepril 10-40 mg] AtorvaSTATin [Lipitor] 40 mg PO QHS 07/25/20 07/25/20 Unknown History Basaglar Kwikpen U-100 30 units SQ HS 07/25/20 07/25/20 Unknown History Cymbalta 30 mg PO BID 07/25/20 07/25/20 Unknown History Effient 10 mg PO DAILY 07/25/20 07/25/20 Unknown History Hydrochlorothiazide 25 mg PO DAILY 07/25/20 07/25/20 Unknown History Imdur ER 30 mg PO DAILY 07/25/20 07/25/20 Unknown History Insulin Aspart (Nf) [NovoLOG 70 units SQ DAILY 07/25/20 07/25/20 Unknown History Flexpen] Oxybutynin 10 mg PO DAILY 07/25/20 07/25/20 Unknown History Protonix TAB 40 mg PO DAILY 07/25/20 07/25/20 Unknown History Wellbutrin XL 300 mg PO DAILY 07/25/20 07/25/20 Unknown History atenoloL [Tenormin] 25 mg PO QDAY 07/25/20 07/25/20 Unknown History hydrALAZINE 50 mg PO DAILY 07/25/20 07/25/20 Unknown History ED Physical Exam - General Limitations: No Limitations - Other Other exam information: General: No acute distress Head: Atraumatic Eyes: normal appearance ENT: Moist mucous membranes Neck: Normal appearance, no midline tenderness Chest: Clear to auscultation bilaterally CV: Regular rate and rhythm Abdomen: Soft, normal bowel sounds, generalized abdominal tenderness, nondistended, no rebound or guarding Back: Normal inspection Extremity: Normal inspection, full range of motion, no calf tenderness, leg asymmetry, or edema Neuro: Alert O x 3, no facial asymmetry, speech clear, no gross motor sensory deficit Psych: Appropriate behavior Skin: No rash ED Course Vital Signs 09/03/20 09/03/20 13:53 18:40 Temperature 98.2 F 98.3 F Pulse Rate 109 H 85 Respiratory 20 20 Rate Blood Pressure 204/114 139/85 O2 Sat by Pulse 99 98 Oximetry JANNETTE score - Jannette Score Age > 65: (0) No Aspirin use within the Past 7 Days: (1) Yes 3 or more CAD Risk Factors: (1) Yes 2 or more Angina events in past 24 hrs: (1) Yes Known CAD with more than 50% Stenosis: (1) Yes Elevated Cardiac Markers: (0) No ST Deviation Greater than 0.5mm: (0) No JANNETTE Score: 4 ED Medical Decision Making - Lab Data Result diagrams: 09/03/20 14:43 09/03/20 14:43 Lab Results 09/03/20 09/03/20 09/03/20 Range/Units 14:43 14:43 16:58 WBC 6.3 (4.5-11.0) K/mm3 RBC 4.39 (3.65-5.03) M/mm3 Hgb 12.4 (10.1-14.3) gm/dl Hct 38.1 (30.3-42.9) % MCV 87 (79-97) fl MCH 28 (28-32) pg MCHC 33 (30-34) % RDW 15.8 H (13.2-15.2) % Plt Count 325 (140-440) K/mm3 Lymph % (Auto) 25.7 (13.4-35.0) % [place] % (Auto) 6.6 (0.0-7.3) % Eos % (Auto) 4.1 (0.0-4.3) % Baso % (Auto) 0.9 (0.0-1.8) % Lymph # (Auto) 1.6 (1.2-5.4) K/mm3 [place] # (Auto) 0.4 (0.0-0.8) K/mm3 Eos # (Auto) 0.3 (0.0-0.4) K/mm3 Baso # (Auto) 0.1 (0.0-0.1) K/mm3 Seg Neutrophils % 62.7 (40.0-70.0) % Seg Neutrophils # 4.0 (1.8-7.7) K/mm3 Sodium 141 (137-145) mmol/L Potassium 4.3 (3.6-5.0) mmol/L Chloride 105.4 (98-107) mmol/L Carbon Dioxide 20 L (22-30) mmol/L Anion Gap 20 mmol/L BUN 23 H (7-17) mg/dL Creatinine 1.2 (0.6-1.2) mg/dL Estimated GFR 56 ml/min BUN/Creatinine Ratio 19 % Glucose 102 H (65-100) mg/dL Calcium 9.9 (8.4-10.2) mg/dL Troponin T < 0.010 < 0.010 (0.00-0.029) ng/mL 09/03/20 Range/Units 20:40 WBC (4.5-11.0) K/mm3 RBC (3.65-5.03) M/mm3 Hgb (10.1-14.3) gm/dl Hct (30.3-42.9) % MCV (79-97) fl MCH (28-32) pg MCHC (30-34) % RDW (13.2-15.2) % Plt Count (140-440) K/mm3 Lymph % (Auto) (13.4-35.0) % [place] % (Auto) (0.0-7.3) % Eos % (Auto) (0.0-4.3) % Baso % (Auto) (0.0-1.8) % Lymph # (Auto) (1.2-5.4) K/mm3 [place] # (Auto) (0.0-0.8) K/mm3 Eos # (Auto) (0.0-0.4) K/mm3 Baso # (Auto) (0.0-0.1) K/mm3 Seg Neutrophils % (40.0-70.0) % Seg Neutrophils # (1.8-7.7) K/mm3 Sodium (137-145) mmol/L Potassium (3.6-5.0) mmol/L Chloride (98-107) mmol/L Carbon Dioxide (22-30) mmol/L Anion Gap mmol/L BUN (7-17) mg/dL Creatinine (0.6-1.2) mg/dL Estimated GFR ml/min BUN/Creatinine Ratio % Glucose (65-100) mg/dL Calcium (8.4-10.2) mg/dL Troponin T < 0.010 (0.00-0.029) ng/mL - EKG Data -: EKG Interpreted by Al EKG shows normal: sinus rhythm, ST-T waves (No STEMI) Rate: normal - EKG Data When compared to previous EKG there are: no significant change - Radiology Data Radiology results: report reviewed CHEST 2 VIEWS INDICATION: Chest Pain. COMPARISON: 07/24/2020 FINDINGS: Support devices: None. Heart: Within normal limits. Lungs/pleura: No acute air space or interstitial disease. No pneumothorax. Additional findings: None. IMPRESSION: No acute findings. CT angio chest: No acute findings in the chest, no pulmonary embolism. Par tially visualized pneumatosis near the splenic flexure of the colon. CT ABDOMEN AND PELVIS WITH CONTRAST INDICATION / CLINICAL INFORMATION: abd pain, n,v. TECHNIQUE: Axial CT images were obtained through the abdomen and pelvis following the administration of intravenous contrast. All CT scans at this location are performed using CT dose reduction for ALARA by means of automated exposure control. COMPARISON: CT abdomen/pelvis dated 02/07/2020. FINDINGS: LOWER CHEST: No significant abnormality. LIVER: No significant abnormality. GALLBLADDER: Surgically absent. PANCREAS: No significant abnormality. SPLEEN: No significant abnormality. ADRENALS: Stable tiny left adrenal nodule. KIDNEYS / URETERS: No significant abnormality. URINARY BLADDER: No significant abnormality. REPRODUCTIVE ORGANS: Partially calcified uterine fibroid. STOMACH / SMALL BOWEL: No significant abnormality. COLON: No significant abnormality. APPENDIX: No significant abnormality. PERITONEUM: No free fluid. No free air. No fluid collection. LYMPH NODES: No significant adenopathy. AORTA / ARTERIES: Mild atherosclerotic calcification without acute abnormality. IVC / VEINS: Left iliac vein stent is noted. SKELETAL SYSTEM: No significant abnormality. ADDITIONAL FINDINGS: None. IMPRESSION: 1. No acute abdominopelvic abnormality. 2. Chronic findings as described above. - Medical Decision Making Patient presents with a past medical with atypical chest pain and abdominal pain with nausea and vomiting. CT angiogram chest and CT abdomen pelvis did not show any acute abnormalities. Pneumatosis at the splenic flexure is once again noted and this is apparently chronic as per previous CAT scans and medical record review. Patient's EKG is unchanged compared to previous and she has 3- troponin values at this time. Patient will be admitted to the hospital for treatment and stabilization. lft and lipase added. Critical Care Time: No Critical care attestation.: If time is entered above; I have spent that time in minutes in the direct care of this critically ill patient, excluding procedure time. ED Disposition Clinical Impression: Chest pain, Nausea & vomiting, Abdominal pain, Insulin dependent diabetes mellitus, Stented coronary artery, Morbid obesity Disposition: OP ADMIT IP TO THIS HOSP Is pt being admited?: Yes Condition: Stable Time of Disposition: 22:23 (Dr Singleton/hosp)
--- NOTE | 2020-09-03 22:12 | Cat Scan Report ---
CT ABDOMEN AND PELVIS WITH CONTRAST INDICATION / CLINICAL INFORMATION: abd pain, n,v. TECHNIQUE: Axial CT images were obtained through the abdomen and pelvis following the administration of intraven ous contrast. All CT scans at this location are performed using CT dose reduction for ALARA by means of automated exposure control. COMPARISON: CT abdomen/pelvis dated 02/07/2020. FINDINGS: LOWER CHEST: No significant abnormality. LIVER: No significant abnormality. GALLBLADDER: Surgically absent. PANCREAS: No significant abnormality. SPLEEN: No significant abnormality. ADRENALS: Stable tiny left adrenal nodule. KIDNEYS / URETERS: No significant abnormality. URINARY BLADDER: No significant abnormality. REPRODUCTIVE ORGANS: Partially calcified uterine fibroid. STOMACH / SMALL BOWEL: No significant abnormality. COLON: No significant abnormality. APPENDIX: No significant abnormality. PERITONEUM: No free fluid. No free air. No fluid collection. LYMPH NODES: No significant adenopathy. AORTA / ARTERIES: Mild atherosclerotic calcification without acute abnormality. IVC / VEINS: Left iliac vein stent is noted. SKELETAL SYSTEM: No significant abnormality. ADDITIONAL FINDINGS: None. IMPRESSION: 1. No acute abdominopelvic abnormality. 2. Chronic findings as described above. Signer Name: Justus Cardona MD Signed: 09/03/2020 10:07 PM Workstation Name: [id number]
[2020-09-03 22:48] LABS: Bilirubin,Urine NEG (Negative); Blood,Urine NEG (Negative); Color,Urine Yellow (Yellow); Mucus,Urine FEW /HPF; Protein,Urine <15 mg/dL mg/dL (Negative); Urobilinogen,Urine < 2.0 mg/dL (<2.0)
[2020-09-03 23:05] LABS: Alanine Aminotransferase 23 units/L (7-56); Albumin 4.1 g/dL (3.9-5)
[2020-09-03 23:23] LABS: Bilirubin,Direct < 0.2 mg/dL (0-0.2)
[2020-09-03] MEDS ORDERED: ACETAMINOPHEN 325 MG TAB PO PRN ×2 (23:33)
[2020-09-03] MEDS ORDERED: ONDANSETRON 4 MG/2 ML INJ IV PRN (23:33)
[2020-09-03] MEDS ORDERED: DEXTROSE 50% IN WATER (25GM) 50 ML SYRINGE IV PRN (23:33)
[2020-09-03] MEDS ORDERED: MAGNESIUM HYDROXIDE (MOM) ORAL LIQD UDC PO PRN (23:33)
[2020-09-03] MEDS ORDERED: NITROGLYCERIN 0.4 MG TAB SUBL SL PRN (23:33)
--- NOTE | 2020-09-03 23:55 | History and Physical Report ---
History of Present Illness Date of examination: 09/03/20 Date of admission: 09/03/2020 Chief complaint: Chest Pain History of present illness: Patient is a 60-year-old female with known history of hypertension, diabetes mellitus, coronary artery disease with stent placement in the past, arthritis and history of DVT presenting to the emergency room today complaining of chest pain that has been intermittent since this morning. Pain is said to be stabbing in nature, left-sided with associated shortness of breath. Pain is said to last about 2 minutes on each occasion. There is no known relieving or exacerbating factor. Patient denies any diaphoresis, no headache or dizziness, no fever or chills. She however has been having some nausea and vomiting with some mild associated abdominal discomfort. She denies any diarrhea, no coffee-ground emesis, no melena. She has had increased frequency of urination but no dysuria or hematuria. Work-up in the emergency room today including CTA of the chest, CT abdomen and pelvis, EKG, troponin so far has been unremarkable. Patient is being admitted for work-up of chest pain. Past History Past Medical History: arthritis, CAD, diabetes, hypertension, hyperlipidemia, other (Obesity,H/O DVT,) Past Surgical History: cholecystectomy, Other (Stent in leg(right)) Social history: no significant social history Family history: no significant family history Medications and Allergies Allergies Allergy/AdvReac Type Severity Reaction Status Date / Time metformin Allergy Nausea Verified 02/07/20 18:02 Home Medications Medication Instructions Recorded Confirmed Last Taken Type Actos 30 mg PO DAILY 07/25/20 07/25/20 Unknown History Amlodipine Besylate/Benazepril 10 - 40 mg PO QDAY 07/25/20 07/25/20 Unknown History [Amlodipine-Benazepril 10-40 mg] AtorvaSTATin [Lipitor] 40 mg PO QHS 07/25/20 07/25/20 Unknown History Basaglar Kwikpen U-100 30 units SQ HS 07/25/20 07/25/20 Unknown History Cymbalta 30 mg PO BID 07/25/20 07/25/20 Unknown History Effient 10 mg PO DAILY 07/25/20 07/25/20 Unknown History Hydrochlorothiazide 25 mg PO DAILY 07/25/20 07/25/20 Unknown History Imdur ER 30 mg PO DAILY 07/25/20 07/25/20 Unknown History Insulin Aspart (Nf) [NovoLOG 70 units SQ DAILY 07/25/20 07/25/20 Unknown History Flexpen] Oxybutynin 10 mg PO DAILY 07/25/20 07/25/20 Unknown History Protonix TAB 40 mg PO DAILY 07/25/20 07/25/20 Unknown History Wellbutrin XL 300 mg PO DAILY 07/25/20 07/25/20 Unknown History atenoloL [Tenormin] 25 mg PO QDAY 07/25/20 07/25/20 Unknown History hydrALAZINE 50 mg PO DAILY 07/25/20 07/25/20 Unknown History Active Meds: Active Medications Acetaminophen (Tylenol) 650 mg PO Q4H PRN PRN Reason: Pain MILD(1-3)/Fever >100.5/THORPE Acetaminophen (Tylenol) 650 mg PO Q6H PRN PRN Reason: Pain, Mild (1-3) Aspirin (Ecotrin) 325 mg PO QDAY DIANN Dextrose (D50w (25gm) Syringe) 50 ml IV Q30MIN PRN; Protocol PRN Reason: Hypoglycemia Insulin Human Lispro (Humalog) 0 unit SUB-Q ACHS DIANN; Protocol Magnesium Hydroxide (Milk Of Magnesia) 30 ml PO Q4H PRN PRN Reason: Constipation Morphine Sulfate (Morphine) 2 mg IV Q5MIN PRN PRN Reason: Chest Pain Nitroglycerin (Nitrostat) 0.4 mg SL Q5M PRN PRN Reason: Chest Pain Ondansetron HCl (Zofran) 4 mg IV Q8H PRN PRN Reason: Nausea And Vomiting Sodium Chloride (Sodium Chloride Flush Syringe 10 Ml) 10 ml IV BID DIANN Sodium Chloride (Sodium Chloride Flush Syringe 10 Ml) 10 ml IV PRN PRN PRN Reason: LINE FLUSH Sodium Chloride (Sodium Chloride Flush Syringe 10 Ml) 10 ml IV PRN PRN PRN Reason: LINE FLUSH Review of Systems Constitutional: no fever, no chills Ears, nose, mouth and throat: no nasal congestion, no sore throat Cardiovascular: chest pain, no palpitations Respiratory: no cough, no shortness of breath Gastrointestinal: abdominal pain, nausea, vomiting, no diarrhea Genitourinary Female: no pelvic pain, no flank pain, no hematuria Musculoskeletal: no neck pain, no low back pain Integumentary: no rash, no pruritis Neurological: no headaches, no confusion Psychiatric: no anxiety, no depression Exam - Constitutional Vitals: Temp Pulse Resp BP Pulse Ox 98.3 F 80 18 119/67 100 09/03/20 18:40 09/03/20 22:34 09/03/20 22:34 09/03/20 22:34 09/03/20 22:34 General appearance: Present: no acute distress, well-nourished, obese - EENT Eyes: Present: PERRL, EOM intact. Absent: scleral icterus ENT: hearing intact, clear oral mucosa, dentition normal - Neck Neck: Present: supple, normal ROM - Respiratory Respiratory effort: normal Respiratory: bilateral: CTA - Cardiovascular Rhythm: regular Heart Sounds: Present: S1 & S2. Absent: gallop, systolic murmur, diastolic murmur, rub - Extremities Extremities: no ischemia, pulses intact, pulses symmetrical, No edema, Full ROM Peripheral Pulses: within normal limits - Abdominal General gastrointestinal: Present: soft, non-tender, non-distended, normal bowel sounds. Absent: mass - Integumentary Integumentary: Present: clear, warm, dry. Absent: rash - Musculoskeletal Musculoskeletal: strength equal bilaterally - Psychiatric Psychiatric: appropriate mood/affect, intact judgment & insight, memory intact, cooperative - Neurologic Neurologic: CNII-XII intact, no focal deficits, moves all extremities HEART Score - HEART Score History: Moderately suspicious EKG: Non-specific Age: 45-65 Risk factors: > 3 risk factors or hx of atherosclerotic disease Troponin: Troponin T < 0.010 ng/mL (0.00-0.029) 09/03/20 20:40 Troponin: < normal limit HEART Score: 5 Results - Labs CBC & Chem 7: 09/04/20 05:08 09/04/20 00:56 Labs: Abnormal lab results 09/03/20 09/03/20 Range/Units 14:43 14:43 RDW 15.8 H (13.2-15.2) % Carbon Dioxide 20 L (22-30) mmol/L BUN 23 H (7-17) mg/dL Glucose 102 H (65-100) mg/dL Assessment and Plan - Patient Problems (1) Chest pain Current Visit: Yes Status: Acute Plan to address problem: Patient admitted and placed on telemetry. Will check serial cardiac enzymes. We will place patient on aspirin, sublingual nitroglycerin and IV morphine as needed for chest pain. We will request cardiology evaluation. (2) Abdominal pain Current Visit: Yes Status: Acute Qualifiers: Plan to address problem: Probably secondary to to the nausea and vomiting. Patient has a remote history of gastroparesis. We will also place on analgesic medication as needed. (3) Insulin dependent diabetes mellitus Current Visit: Yes Status: Acute Plan to address problem: We will monitor Accu-Cheks closely. (4) Nausea & vomiting Current Visit: Yes Status: Acute Plan to address problem: Patient placed on Zofran as needed. (5) DVT prophylaxis Current Visit: Yes Status: Acute Plan to address problem: We will place patient on subcutaneous heparin. (6) Full code status Current Visit: Yes Status: Acute
[2020-09-04 01:37] LABS: Basophils % (Auto) 0.6 % (0.0-1.8); Eosinophils # (Auto) 0.2 K/mm3 (0.0-0.4); Eosinophils % (Auto) 3.3 % (0.0-4.3); Hematocrit 37.4 % (30.3-42.9); Hemoglobin 12.4 gm/dl (10.1-14.3); Lymphocytes # (Auto) 2.7 K/mm3 (1.2-5.4); Lymphocytes % (Auto) 38.9 % (13.4-35.0); Mean Corpuscular HGB Conc 33 % (30-34); Mean Corpuscular Volume 87 fl (79-97); Monocytes # (Auto) 0.5 K/mm3 (0.0-0.8); Monocytes % (Auto) 6.5 % (0.0-7.3); Platelet Count 320 K/mm3 (140-440); Red Cell Distribution Width 15.6 % (13.2-15.2)
[2020-09-04 01:58] LABS: BUN/Creatinine Ratio 17; Blood Urea Nitrogen 19 mg/dL (7-17); Calcium 9.5 mg/dL (8.4-10.2); Hemolysis Index 6
[2020-09-04] MEDS: MORPHINE 4 MG/1 ML INJ IV PRN ×2 (03:27→22:00)
[2020-09-04] MEDS ORDERED: HYDROmorphone 2 MG/1 ML INJ IV ONE (05:58)
[2020-09-04 06:00] LABS: Basophils % (Auto) 0.6 % (0.0-1.8); Eosinophils # (Auto) 0.2 K/mm3 (0.0-0.4); Eosinophils % (Auto) 3.9 % (0.0-4.3); Hematocrit 33.1 % (30.3-42.9); Hemoglobin 10.9 gm/dl (10.1-14.3); Lymphocytes # (Auto) 2.2 K/mm3 (1.2-5.4); Lymphocytes % (Auto) 39.4 % (13.4-35.0); Mean Corpuscular HGB Conc 33 % (30-34); Mean Corpuscular Volume 86 fl (79-97); Monocytes # (Auto) 0.5 K/mm3 (0.0-0.8); Monocytes % (Auto) 8.3 % (0.0-7.3); Platelet Count 269 K/mm3 (140-440); Red Blood Count 3.84 M/mm3 (3.65-5.03); Red Cell Distribution Width 16.2 % (13.2-15.2)
[2020-09-04 06:38] LABS: BUN/Creatinine Ratio 16; Blood Urea Nitrogen 18 mg/dL (7-17); Calcium 9.2 mg/dL (8.4-10.2); Hemolysis Index 13
[2020-09-04] MEDS: INSULIN LISPRO 100 UNIT/ML VIAL 3 mL SUB-Q SCH ×4 (07:44→21:47)
[2020-09-04] MEDS ORDERED: REGADENOSON 0.4 MG/5 ML INJ IV ONE ×2 (07:54→08:03)
--- NOTE | 2020-09-04 11:33 | Progress Note ---
Assessment and Plan Assessment and plan: (1) Chest pain, history of CAD Current Visit: Yes Status: Acute Plan to address problem: Serial cardiac enzymes are negative, continue telemetry monitoring We will place patient on aspirin, sublingual nitroglycerin and IV morphine as needed for chest pain. Patient will have stress test today Cardiology consulted (2) Abdominal pain Current Visit: Yes Status: Acute Qualifiers: Plan to address problem: Resolved (3) Insulin dependent diabetes mellitus Current Visit: Yes Status: Acute Plan to address problem: We will monitor Accu-Cheks closely. Sliding scale insulin, blood sugar is controlled (4) Nausea & vomiting Current Visit: Yes Status: Acute Plan to address problem: Patient placed on Zofran as needed. Resolved (5) DVT prophylaxis Current Visit: Yes Status: Acute Plan to address problem: We will place patient on subcutaneous heparin. Morbid obesity -Counseled about lifestyle modification (6) Full code status Current Visit: Yes Status: Acute Disposition; follow stress test result and cardiology recommendation. History Interval history: No nursing issues overnight Hospitalist Physical - Physical exam Narrative exam: Not in cardiopulmonary distress. The patient is obese Vital signs as documented. Head exam is unremarkable. No scleral icterus . Neck is without jugular venous distension, thyromegaly, or carotid bruits. Lungs are clear to auscultation. Cardiac exam reveals regular rate and Rhythm. Abdominal exam reveals normal bowel sounds, nontender, no organomegaly. Extremities are nonedematous and both femoral and pedal pulses are normal. TRANSPORTATION PROGRAM DIRECTOR: Alert and oriented 3. No focal weakness. - Constitutional Vitals: Temp Pulse Resp BP Pulse Ox 98.3 F 73 20 131/71 94 09/04/20 07:42 09/04/20 07:42 09/04/20 07:42 09/04/20 09:04 09/04/20 07:42 General appearance: Present: no acute distress, well-nourished, obese HEART Score - HEART Score EKG: Non-specific Age: 45-65 Risk factors: > 3 risk factors or hx of atherosclerotic disease Troponin: Troponin T < 0.010 ng/mL (0.00-0.029) 09/04/20 05:08 Troponin: < normal limit Results - Labs CBC & Chem 7: 09/04/20 05:08 09/04/20 05:08 Labs: Laboratory Last Values WBC 5.7 K/mm3 (4.5-11.0) 09/04/20 05:08 RBC 3.84 M/mm3 (3.65-5.03) 09/04/20 05:08 Hgb 10.9 gm/dl (10.1-14.3) 09/04/20 05:08 Hct 33.1 % (30.3-42.9) 09/04/20 05:08 MCV 86 fl (79-97) 09/04/20 05:08 MCH 28 pg (28-32) 09/04/20 05:08 MCHC 33 % (30-34) 09/04/20 05:08 RDW 16.2 % (13.2-15.2) H 09/04/20 05:08 Plt Count 269 K/mm3 (140-440) 09/04/20 05:08 Lymph % (Auto) 39.4 % (13.4-35.0) H 09/04/20 05:08 [place] % (Auto) 8.3 % (0.0-7.3) H 09/04/20 05:08 Eos % (Auto) 3.9 % (0.0-4.3) 09/04/20 05:08 Baso % (Auto) 0.6 % (0.0-1.8) 09/04/20 05:08 Lymph # (Auto) 2.2 K/mm3 (1.2-5.4) 09/04/20 05:08 [place] # (Auto) 0.5 K/mm3 (0.0-0.8) 09/04/20 05:08 Eos # (Auto) 0.2 K/mm3 (0.0-0.4) 09/04/20 05:08 Baso # (Auto) 0.0 K/mm3 (0.0-0.1) 09/04/20 05:08 Seg Neutrophils % 47.8 % (40.0-70.0) 09/04/20 05:08 Seg Neutrophils # 2.7 K/mm3 (1.8-7.7) 09/04/20 05:08 PT 13.3 Sec. (12.2-14.9) 09/04/20 05:08 INR 1.00 (0.87-1.13) 09/04/20 05:08 Sodium 142 mmol/L (137-145) 09/04/20 05:08 Potassium 4.2 mmol/L (3.6-5.0) 09/04/20 05:08 Chloride 107.0 mmol/L (98-107) 09/04/20 05:08 Carbon Dioxide 23 mmol/L (22-30) 09/04/20 05:08 Anion Gap 16 mmol/L 09/04/20 05:08 BUN 18 mg/dL (7-17) H 09/04/20 05:08 Creatinine 1.1 mg/dL (0.6-1.2) 09/04/20 05:08 Estimated GFR > 60 ml/min 09/04/20 05:08 BUN/Creatinine Ratio 16 % 09/04/20 05:08 Glucose 144 mg/dL (65-100) H 09/04/20 05:08 POC Glucose 107 (70-105) H 09/04/20 07:55 Calcium 9.2 mg/dL (8.4-10.2) 09/04/20 05:08 Total Bilirubin 0.30 mg/dL (0.1-1.2) 09/03/20 20:40 Direct Bilirubin < 0.2 mg/dL (0-0.2) 09/03/20 20:40 Indirect Bilirubin 0.1 mg/dL 09/03/20 20:40 AST 22 units/L (5-40) 09/03/20 20:40 ALT 23 units/L (7-56) 09/03/20 20:40 Alkaline Phosphatase 118 units/L (35-129) 09/03/20 20:40 Troponin T < 0.010 ng/mL (0.00-0.029) 09/04/20 05:08 Total Protein 6.7 g/dL (6.3-8.2) 09/03/20 20:40 Albumin 4.1 g/dL (3.9-5) 09/03/20 20:40 Albumin/Globulin Ratio 1.6 % 09/03/20 20:40 Lipase 27 units/L (13-60) 09/03/20 20:40 Urine Color Yellow (Yellow) 09/03/20 Unknown Urine Turbidity Clear (Clear) 09/03/20 Unknown Urine pH 5.0 (5.0-7.0) 09/03/20 Unknown Ur Specific [place] 1.016 (1.003-1.030) 09/03/20 Unknown Urine Protein <15 mg/dl mg/dL (Negative) 09/03/20 Unknown Urine Glucose (UA) 50 mg/dL (Negative) 09/03/20 Unknown Urine Ketones Neg mg/dL (Negative) 09/03/20 Unknown Urine Blood Neg (Negative) 09/03/20 Unknown Urine Nitrite Neg (Negative) 09/03/20 Unknown Urine Bilirubin Neg (Negative) 09/03/20 Unknown Urine Urobilinogen < 2.0 mg/dL (<2.0) 09/03/20 Unknown Ur Leukocyte Esterase Neg (Negative) 09/03/20 Unknown Urine WBC (Auto) 1.0 /HPF (0.0-6.0) 09/03/20 Unknown Urine RBC (Auto) 2.0 /HPF (0.0-6.0) 09/03/20 Unknown U Epithel Cells (Auto) < 1.0 /HPF (0-13.0) 09/03/20 Unknown Urine Mucus Few /HPF 09/03/20 Unknown [place]/IV: Voiding Method Toilet IV Catheter Type [Left Peripheral IV Antecubital] Active Medications - Current Medications Current Medications: Generic Name Dose Route Start Last Admin Trade Name Freq PRN Reason Stop Dose Admin Acetaminophen 650 mg 09/03/20 23:33 Tylenol PO Q4H PRN Pain MILD(1-3)/Fever >100.5/THORPE Aspirin 325 mg 09/04/20 10:00 Ecotrin PO QDAY [facility] Dextrose 50 ml 09/03/20 23:33 D50w (25gm) Syringe IV Q30MIN PRN Hypoglycemia Protocol Heparin Sodium (Porcine) 5,000 unit 09/04/20 14:00 Heparin SUB-Q Q8HR [facility] Insulin Human Lispro 0 unit 09/04/20 07:30 09/04/20 07:44 Humalog SUB-Q Not Given ACHS [facility] Protocol Magnesium Hydroxide 30 ml 09/03/20 23:33 Milk Of Magnesia PO Q4H PRN Constipation Morphine Sulfate 2 mg 09/03/20 23:33 09/04/20 03:27 Morphine IV 2 mg Q5MIN PRN Administration Chest Pain Nitroglycerin 0.4 mg 09/03/20 23:33 Nitrostat SL Q5M PRN Chest Pain Ondansetron HCl 4 mg 09/03/20 23:33 Zofran IV Q8H PRN Nausea And Vomiting Sodium Chloride 10 ml 09/04/20 10:00 Sodium Chloride Flush Syringe 10 Ml IV BID DIANN Sodium Chloride 10 ml 09/03/20 23:33 Sodium Chloride Flush Syringe 10 Ml IV PRN PRN LINE FLUSH
[2020-09-04] MEDS ORDERED: guaiFENesin DM 200/20 MG ORAL LIQD 10 ML PO PRN (12:14)
--- NOTE | 2020-09-04 14:10 | Consultation ---
HISTORY OF PRESENT ILLNESS: The patient is a 60-year-old female with multiple medical problems including history of coronary artery disease. She states she had coronary procedures in 2018 and 2019. She presented with stabbing left-sided chest pain that was prolonged and associated with shortness of breath. There was nausea and vomiting and abdominal pain as well. She had recurrent brief episodes each lasting a few minutes. She did not describe any exertional symptoms in recent weeks. She states her blood pressure has been reasonable. She did not describe any clearcut chest pain associated with meals. She has had some ankle edema. She has had GI symptoms for the past 1 year. There have been no strokes or congestive heart failure. There have been no arrhythmias. She did not describe any clearcut tender or pleuritic component to her chest pain. ALLERGIES: METFORMIN. MEDICATIONS: See the nurse's list. SOCIAL HISTORY: Smoking: None. Alcohol: No heavy use. FAMILY HISTORY: Noncontributory. PREVIOUS SURGERIES: Cholecystectomy as well as a stent to the right leg. REVIEW OF SYSTEMS: It is unclear how well the diabetes, hypertension and hyperlipidemia have been under control. She has arthritis as well. PHYSICAL EXAMINATION: GENERAL: Markedly overweight, no acute distress. EYES, EARS, NOSE AND THROAT: Unremarkable. Mental status normal. NECK: Reveals no JVD or bruits. Neck is supple. No masses. LUNGS: Clear. No labored respirations. HEART: Regular rhythm. Soft S4. No murmurs or rubs. ABDOMEN: Soft, nontender. No masses. EXTREMITIES: No cyanosis, clubbing or edema. Peripheral pulses are intact. NEUROLOGIC: Symmetrical. SKIN: Clear. ASSESSMENT: 1. Chest pain as well as abdominal pain with associated nausea and vomiting. Troponins were negative. She underwent a stress test today that showed a fixed inferior defect. No clearcut ischemic zones. At this point, I would recommend medical therapy for possible angina. Also consider underlying GI etiology. 2. Hypertension: Accelerated on admission, possibly secondary to apprehension. The patient states that the blood pressure has usually been reasonable. 3. Morbid obesity. 4. Diabetes. 5. Hypertension. 6. Hyperlipidemia. PLAN: Aggressive antianginal therapy. Consider GI workup. Ambulate today. Consider discharge later today. JOB# [id number] JDS/NTS
[2020-09-04] MEDS: ASPIRIN EC 325 MG TAB PO SCH (15:47)
[2020-09-04] MEDS: HEPARIN 5,000 UNIT/1 ML VIAL SUB-Q SCH ×2 (15:47→21:46)
[2020-09-05] MEDS ORDERED: OXYBUTYNIN 5 MG TAB PO ONE (04:20)
[2020-09-05 05:37] LABS: BUN/Creatinine Ratio 19; Blood Urea Nitrogen 21 mg/dL (7-17); Calcium 9.4 mg/dL (8.4-10.2); Hemolysis Index 2
[2020-09-05] MEDS: HEPARIN 5,000 UNIT/1 ML VIAL SUB-Q SCH ×2 (06:14→14:15)
[2020-09-05] MEDS ORDERED: PIOGLITAZONE 15 MG TAB PO SCH (08:00)
[2020-09-05] MEDS ORDERED: OXYBUTYNIN 5 MG TAB PO SCH (10:00)
[2020-09-05] MEDS ORDERED: WELLBUTRIN 300 MG PO SCH (10:00)
[2020-09-05] MEDS ORDERED: PIOGLITAZONE 30 MG PO SCH (10:00)
[2020-09-05] MEDS ORDERED: atenoloL 25 MG TAB PO SCH (10:00)
[2020-09-05] MEDS ORDERED: OXYBUTYNIN 10 MG PO SCH (10:00)
[2020-09-05] MEDS ORDERED: IMDUR 30 MG PO SCH (10:00)
[2020-09-05] MEDS ORDERED: buPROPion XL 150 MG TAB PO SCH (10:00)
[2020-09-05] MEDS ORDERED: PANTOPRAZOLE 40 MG TAB PO SCH (10:00)
[2020-09-05] MEDS ORDERED: PROTONIX 40 MG PO SCH (10:00)
[2020-09-05] MEDS: ASPIRIN EC 325 MG TAB PO SCH (10:04)
[2020-09-05] MEDS: INSULIN LISPRO 100 UNIT/ML VIAL 3 mL SUB-Q SCH ×2 (10:07→14:15)
[2020-09-05 12:10] VITALS: BP 121/71
--- NOTE | 2020-09-05 12:59 | Progress Note ---
Assessment and Plan - Patient Problems (1) Chest pain Current Visit: Yes Status: Acute (2) Morbid obesity Current Visit: Yes Status: Acute (3) Stented coronary artery Current Visit: Yes Status: Acute Subjective Date of service: 09/05/20 Interval history: NO C/O Objective Vital Signs Temp Pulse Resp BP Pulse Ox 09/05/20 12:08 98.3 F 71 20 121/71 99 09/05/20 08:48 99.0 F 69 20 107/76 98 09/05/20 05:00 72 09/05/20 04:44 97.6 F 72 20 127/80 97 09/05/20 00:13 98.9 F 85 18 112/60 97 09/04/20 22:30 18 09/04/20 22:00 18 98 09/04/20 21:00 82 09/04/20 20:00 98.2 F 82 20 134/82 98 09/04/20 16:42 97.9 F 73 20 164/88 99 09/04/20 13:00 70 - Physical Examination General: No Apparent Distress HEENT: Positive: PERRL Neck: Positive: neck supple Cardiac: Positive: Reg Rate and Rhythm Lungs: Positive: clear to auscultation Extremities: Present: edema (TR.) - Labs and Meds Comprehensive Metabolic Panel 09/05/20 Range/Units 04:52 Sodium 139 (137-145) mmol/L Potassium 4.5 (3.6-5.0) mmol/L Chloride 104.9 (98-107) mmol/L Carbon Dioxide 23 (22-30) mmol/L BUN 21 H (7-17) mg/dL Creatinine 1.1 (0.6-1.2) mg/dL Glucose 128 H (65-100) mg/dL Calcium 9.4 (8.4-10.2) mg/dL
--- NOTE | 2020-09-05 13:05 | Discharge Summary ---
Providers - Providers Date of Admission: 09/03/20 22:23 Date of discharge: 09/05/20 Attending physician: RICHARD STEEL 09/03/20 Consult to Cardiac Rehabilitation [CONS] Routine Reason For Exam: Phase I 09/03/20 23:34 Consult to Cardiology [CONS] Routine Consulting Provider: ANSELMO MATHEWS Reason For Exam: Chest pain. H/O CAD WITH STENT Consult to Dietitian/Nutrition [CONS] Routine Physician Instructions: Reason For Exam: Reason for Consult: Diet education Primary care physician: PRINCIPAL SYSTEM SOFTWARE ENGINEER Hospitalization Condition: Fair Hospital course: Patient is a 60-year-old female with known history of hypertension, diabetes mellitus, coronary artery disease with stent placement in the past, arthritis and history of DVT presenting to the emergency room today complaining of chest pain that has been intermittent since this morning. Pain is said to be stabbing in nature, left-sided with associated shortness of breath. Pain is said to last about 2 minutes on each occasion. There is no known relieving or exacerbating factor. Patient denies any diaphoresis, no headache or dizziness, no fever or chills. She however has been having some nausea and vomiting with some mild associated abdominal discomfort. She denies any diarrhea, no coffee-ground emesis, no melena. She has had increased frequency of urination but no dysuria or hematuria. Work-up in the emergency room today including CTA of the chest, CT abdomen and pelvis, EKG, troponin so far has been unremarkable. Cardiac work-up including CTA CT of chest. Was unremarkable. Follow-up stress test unremarkable. Ruled out for angina. Treat with medical management. Discussed with Dr. Connelly as well. Disposition: - TO HOME OR SELFCARE - Discharge Diagnoses (1) Abdominal pain Status: Acute Qualifiers: Comment: Chronic has resolved now stable no nausea vomiting. Being worked up by GI as outpatient. (2) Chest pain Status: Acute Comment: Patient cardiac work-up negative stress test negative. Treat angina conservatively. (3) Morbid obesity Status: Acute Core Measure Documentation - Palliative Care Palliative Care/ Comfort Measures: Not Applicable - Core Measures Any of the following diagnoses?: none Exam - Constitutional Vitals: Temp Pulse Resp BP Pulse Ox 98.3 F 71 20 121/71 99 09/05/20 12:08 09/05/20 12:08 09/05/20 12:08 09/05/20 12:08 09/05/20 12:08 General appearance: Present: no acute distress, well-nourished - EENT Eyes: Present: PERRL ENT: hearing intact, clear oral mucosa - Neck Neck: Present: supple, normal ROM - Respiratory Respiratory effort: normal Respiratory: bilateral: CTA - Cardiovascular Heart Sounds: Present: S1 & S2. Absent: rub, click - Extremities Extremities: pulses symmetrical, No edema Peripheral Pulses: within normal limits - Abdominal General gastrointestinal: Present: soft, non-tender, non-distended, normal bowel sounds Female genitourinary: Present: normal - Integumentary Integumentary: Present: clear, warm, dry - Musculoskeletal Musculoskeletal: gait normal, strength equal bilaterally - Psychiatric Psychiatric: appropriate mood/affect, intact judgment & insight - Neurologic Neurologic: CNII-XII intact, moves all extremities Plan Activity: no restrictions Weight Bearing Status: Full Weight Bearing Diet: low fat, diabetic Follow up with: PRIMARY CARE, [Primary Care Provider] - 7 Days
== END 2020-09-05 16:00 | disposition home or self-care (01) ==
LOC: ED 13:28 → 4A 22:23
PROVIDERS: ADMIT Internal Medicine Geriatric Medicine; ATTEND Internal Medicine
DX: R07.89 Other chest pain (principal); I10 Essential (primary) hypertension; M19.90 Unspecified osteoarthritis, unspecified site; E78.5 Hyperlipidemia, unspecified; I25.10 Atherosclerotic heart disease of native coronary artery without angina pectoris; E11.9 Type 2 diabetes mellitus without complications; E66.01 Morbid (severe) obesity due to excess calories; R11.2 Nausea with vomiting, unspecified; R10.9 Unspecified abdominal pain; Z90.49 Acquired absence of other specified parts of digestive tract; Z95.5 Presence of coronary angioplasty implant and graft; Z79.4 Long term (current) use of insulin; Z79.82 Long term (current) use of aspirin; Z95.1 Presence of aortocoronary bypass graft; Z98.891 History of uterine scar from previous surgery; Z68.42 Body mass index [BMI] 45.0-49.9, adult
CPT/HCPCS: 36415; 71046; 71275; 74177; 78452; 80048; 80076; 81001; 82962; 83690; 84484; 85025; 85610; 93005; 93017; 93306; 96361; 96372; 96374; 96375; 96376; 99285; A9502; G0378; J1170; J1644; J2270; J2405; J2785; J7030; Q9967